=== PATIENT | female | born 1955 | race Caucasian/White ===

== ENCOUNTER 2021-04-03 13:41 | Inpatient (IN) ==
[2021-04-03] MEDS ORDERED: SODIUM CHLORIDE 0.9% 1000ML 1,000 ML IV ONE (14:38)
[2021-04-03] MEDS ORDERED: dilTIAZem HCl 5 MG/ML 5 ML VIAL IV STA ×2 (14:38→15:50)
--- NOTE | 2021-04-03 15:00 | XRay Report ---
XR chest 1V portable CLINICAL HISTORY: Chest Pain. COMPARISON STUDY: 05/18/2012 TECHNIQUE: 1 view of the chest FINDINGS: Single frontal view of the chest demonstrates the cardiomediastinal silhouette to be within normal li mits. The lungs are clear of alveolar opacities. There is no evidence for pleural effusion. There is no evidence for vascular congestion. There is no acute osseous pathology. IMPRESSION: No acute cardiopulmonary disease. ACT 112: Negative or not required by law. Electronically signed by: Florin Nguyen M.D. 04/03/2021 2:59 PM
--- NOTE | 2021-04-03 15:09 | Emergency Department Note ---
Impression & Plan Atrial fibrillation with rapid ventricular response, Palpitations, Exertional shortness of breath ED Provider Note NAME: LARA YOUNG AGE: 65 SEX: F : 1955 ARRIVES VIA: Walk-In INFORMANT: Patient, ED PROVIDER(S): Danyel Peña DO CHIEF COMPLAINT: Palpitations HPI: The patient is a 65-year-old female who presented to the emergency department from her family doctor's office for an evaluation of palpitations. The patient states that she recently got over COVID-19. She was positive a few weeks ago she continued her with a formal quarantine process and was feeling much better. Over the last few days she has been noticing that she has been more short of breath especially with any exertion. She denies having any chest pain. She has had no lower extremity swelling. The patient states that she went to her family doctor's office to be evaluated. She had an EKG done at the office and was sent to the emergency department immediately for further evaluation. The patient states that she is compliant with her outpatient medications. She states that she has no history of dysrhythmia or atrial fibrillation. The patient states that she has had no syncope. The patient was not seen by dyer assistant. ROS: See above HPI for pertinent positives & negatives. A total of 10 systems reviewed and were otherwise negative. PAST MEDICAL HISTORY: See Below PAST SURGICAL HISTORY: See Below FAMILY HISTORY: See Below SOCIAL HISTORY: See Below HOME MEDICATIONS: See Below ALLERGIES: See Below VITALS: See Below PHYSICAL EXAMINATION: GENERAL: Patient is awake alert in no acute distress patient is resting comfortably and showing no signs of anxiety EYES: The conjunctivae are clear. The pupils are round and reactive. EARS, NOSE, MOUTH AND THROAT: The nose is without any evidence of any deformity. NECK: The neck is nontender and supple. RESPIRATORY: Normal respiratory effort is noted there is no evidence of wheezing rhonchi or rales CARDIOVASCULAR: Tachycardic and irregular heart sounds were noted to auscultation. There is no definite murmur. GASTROINTESTINAL: The abdomen is soft. Abdomen is nontender. MUSCULOSKELETAL/EXTREMITIES: There is no evidence of gross deformity full range of motion is noted in the hips and shoulders. SKIN: There is no obvious evidence of any rash. There are no petechiae, pallor or cyanosis noted. NEUROLOGIC: Patient is awake alert and oriented x3. MEDICAL DECISION MAKING: The patient is a 65-year-old female who presented to emergency department for an abnormal EKG. The patient was found to have new onset atrial fibrillation with RVR. Patient was treated with IV fluids as well as IV Cardizem in the emergency department. She was reevaluated multiple times. Her pulse rate started to improve but then rebounded became higher. I discussed the patient's condition with her. I also discussed her case with the on-call [facility]. They have agreed to evaluate the patient in the emergency department for further management and disposition. A Cardizem drip was ordered by the admitt ing team. I will defer anticoagulation to the admitting team. Triage Nursing notes reviewed. Prior medical records reviewed Vital Signs: reviewed and remarkable for tachycardia. Differential diagnosis: Premature contractions, electrolyte abnormality, cardiac dysrhythmia, thyroid dysfunction, pulmonary embolism, infection, gastrointestinal, as well as other pathologies. ER treatment provided: See below Diagnostics interpreted by me: ECG: EKG was obtained in the emergency department. My interpretation is atrial fibrillation at 152 bpm. There is no PVCs appreciated. Nonspecific ST segment abnormalities were noted. This was compared to a tracing from May 222012. Sinus rhythm has been replaced by rapid atrial fibrillation. Cardiac Monitoring: An order was placed for continuous cardiac monitoring. The monitor shows a rate of 139 bpm with sinus rhythm. Laboratory studies: As stated above and show below. Imaging studies: See below Consultation(s): I discussed this case with the on-call [facility]. They have agreed to evaluate the patient in the emergency department. ED COURSE: Procedures: none Critical Care: I have personally spent greater than 40 minutes of critical care time in the direct management of this patient. This includes bedside care, interpretation of diagnostic studies, and testing, discussion with consultants, patient, and family members, and other required patient management activities. This 40 minutes is in excess of all separately billable procedures. Past Med/Surg History Medical History Calculus of ureter (05/21/12) Discectomy for intervertebral herniated disc, nucleus pulposus (05/21/12) History of COVID-19 HLD (hyperlipidemia) Hypertension Hypothyroid VANESA on CPAP Restless legs (05/21/12) Subarachnoid hemorrhage determined to be benign, spontaneous, 2012, seen by Dr. Montez, f/u MRI showed resolution of bleed T2DM (type 2 diabetes mellitus) Surgical History History of colonoscopy History of laminectomy History of tubal ligation Family History Father , 52 Myocardial infarction Brother Coronary heart disease Sister , 53 Myocardial infarction Mother Cancer Social History Smoking Status: Never smoker Second Hand Exposure: No; Do You Dip or Chew Tobacco: No; Hx Alcohol Use: No Hx Substance Use: No Preferred Language: Bhutanese Communication Ability: Effective Provisioning Specialist Required: No Beliefs That Will Affect Care: None marital status: Current Living Situation: Family Current Living Situation Comment: , daughter and 3 granddaughters Other Information That Helps Us Care for You: No Feels Safe at Home: Yes Safety Concerns: Feels Safe At This Time Assistive Devices: Glasses Allergies Allergies Allergy/AdvReac Type Severity Reaction Status Date / Time hydrocodone Allergy Intermediate RASH Verified 04/03/21 16:59 Sulfa (Sulfonamide Allergy Mild GI SYMPTOMS Verified 04/03/21 16:59 Antibiotics) Home Meds Home Medications Medication Instructions Recorded Confirmed amlodipine 5 mg tablet 5 mg PO DAILY 04/03/21 04/03/21 ascorbic acid (vitamin C) 500 mg 0 mg PO DAILY 04/03/21 04/03/21 tablet (Vitamin C) aspirin 81 mg tablet,delayed 81 mg PO DAILY 04/03/21 04/03/21 release atorvastatin 40 mg tablet 40 mg PO HS 04/03/21 04/03/21 cholecalciferol (vitamin D3) 25 0 mcg PO DAILY 04/03/21 04/03/21 mcg (1,000 unit) capsule (Vitamin D3) glucosamine sulf dipot 1 cap PO BID 04/03/21 04/03/21 chlr,msm,chond 550 mg-C 30 mg-jose 1 mg capsule (Glucosamine Chondroitin) levothyroxine 100 mcg tablet 100 mcg PO DAILYBB 04/03/21 04/03/21 levothyroxine 25 mcg tablet 25 mcg PO DAILYBB 04/03/21 04/03/21 metformin 500 mg tablet,extended 500 mg PO BIDM 04/03/21 04/03/21 release 24 hr multivitamin 1 tab PO DAILY 04/03/21 04/03/21 omega-3 fatty acids 1,000 mg 1,000 mg PO DAILY 04/03/21 04/03/21 capsule omeprazole 20 mg capsule,delayed 20 mg PO DAILY 04/03/21 04/03/21 release turmeric 400 mg capsule 400 mg PO DAILY 04/03/21 04/03/21 vitamin E 400 unit capsule 0 unit PO DAILY 04/03/21 04/03/21 zinc 50 mg tablet 50 mg PO DAILY 04/03/21 04/03/21 Results & Data (ED) Vital Signs Vital Signs - 24 hr 04/03/21 14:01 04/03/21 14:06 04/03/21 14:36 Temperature 36.8 C Temperature Source Temporal Artery Scan Pulse Rate 132 H 151 H Pulse Rate [Apical] Pulse Rate from SpO2 Sensor Pulse Rhythm Pulse Rhythm [Apical] Respiratory Rate 18 16 Respiratory Effort / Characteristics Respiratory Depth Respiratory Pattern Blood Pressure 130/65 Blood Pressure [Right Arm] Blood Pressure Mean 86 Blood Pressure Mean [Right Arm] Blood Pressure Position [Right Arm] Pulse Oximetry 97 Oxygen Delivery Method Room Air Room Air Sepsis Recent Fever Within 48 Hours No Sepsis New/Unexplained Change in Mental Status No Sepsis Action Taken by Nursing No Action Required 04/03/21 14:56 04/03/21 14:57 04/03/21 14:59 Temperature Temperature Source Pulse Rate 157 H 153 H Pulse Rate [Apical] 144 H Pulse Rate from SpO2 Sensor 133 H 131 H Pulse Rhythm Irregular Pulse Rhythm [Apical] Irregular Respiratory Rate 22 22 19 Respiratory Effort / Characteristics Non-Labored Spontaneous Respiratory Depth Normal Respiratory Pattern Regular Blood Pressure 138/119 H 152/102 H Blood Pressure [Right Arm] 152/102 H Blood Pressure Mean 125 118 Blood Pressure Mean [Right Arm] 118 Blood Pressure Position [Right Arm] Semi-fowlers Pulse Oximetry 99 97 98 Oxygen Delivery Method Room Air Room Air Sepsis Recent Fever Within 48 Hours Sepsis New/Unexplained Change in Mental Status Sepsis Action Taken by Nursing 04/03/21 15:00 04/03/21 15:30 04/03/21 15:40 Temperature Temperature Source Pulse Rate 161 H 142 H 115 H Pulse Rate [Apical] Pulse Rate from SpO2 Sensor 146 H 135 H 111 H Pulse Rhythm Pulse Rhythm [Apical] Respiratory Rate 21 25 H 16 Respiratory Effort / Characteristics Respiratory Depth Respiratory Pattern Blood Pressure 129/104 H 134/82 Blood Pressure [Right Arm] Blood Pressure Mean 112 99 Blood Pressure Mean [Right Arm] Blood Pressure Position [Right Arm] Pulse Oximetry 97 97 98 Oxygen Delivery Method Sepsis Recent Fever Within 48 Hours Sepsis New/Unexplained Change in Mental Status Sepsis Action Taken by Nursing 04/03/21 15:44 04/03/21 15:50 04/03/21 16:00 Temperature Temperature Source Pulse Rate 129 H 97 H Pulse Rate [Apical] 110 H Pulse Rate from SpO2 Sensor 119 H 104 H Pulse Rhythm Pulse Rhythm [Apical] Respiratory Rate 21 21 Respiratory Effort / Characteristics Respiratory Depth Respiratory Pattern Blood Pressure Blood Pressure [Right Arm] Blood Pressure Mean Blood Pressure Mean [Right Arm] Blood Pressure Position [Right Arm] Pulse Oximetry 88 L 97 Oxygen Delivery Method Sepsis Recent Fever Within 48 Hours Sepsis New/Unexplained Change in Mental Status Sepsis Action Taken by Nursing 04/03/21 16:01 04/03/21 16:10 04/03/21 16:20 Temperature Temperature Source Pulse Rate 97 H 98 H 123 H Pulse Rate [Apical] Pulse Rate from SpO2 Sensor 86 98 H 111 H Pulse Rhythm Pulse Rhythm [Apical] Respiratory Rate 23 18 22 Respiratory Effort / Characteristics Respiratory Depth Respiratory Pattern Blood Pressure 114/84 Blood Pressure [Right Arm] Blood Pressure Mean 94 Blood Pressure Mean [Right Arm] Blood Pressure Position [Right Arm] Pulse Oximetry 91 97 98 Oxygen Delivery Method Sepsis Recent Fever Within 48 Hours Sepsis New/Unexplained Change in Mental Status Sepsis Action Taken by Nursing 04/03/21 16:30 04/03/21 16:40 Temperature Temperature Source Pulse Rate 85 127 H Pulse Rate [Apical] Pulse Rate from SpO2 Sensor 88 118 H Pulse Rhythm Pulse Rhythm [Apical] Respiratory Rate 27 H 22 Respiratory Effort / Characteristics Respiratory Depth Respiratory Pattern Blood Pressure 102/76 Blood Pressure [Right Arm] Blood Pressure Mean 84 Blood Pressure Mean [Right Arm] Blood Pressure Position [Right Arm] Pulse Oximetry 97 97 Oxygen Delivery Method Sepsis Recent Fever Within 48 Hours Sepsis New/Unexplained Change in Mental Status Sepsis Action Taken by [facility] Medications Current Medication List: was personally reviewed by me Laboratory Data Attestation: I reviewed the patient's lab results. Result diagrams: 04/04/21 05:28 04/04/21 05:28 Lab Results 04/03/21 04/03/21 04/03/21 Range/Units 14:55 14:55 14:55 WBC 9.17 (4.8-10.8) K/uL RBC 4.11 L (4.2-5.4) M/uL Hgb 11.6 L (12.0-16.0) g/dL Hct 36.1 L (37-47) % MCV 87.8 (80-100) fL MCH 28.2 (25-34) pg MCHC 32.1 (32-36) g/dL RDW Std Deviation 48.3 H (36.4-46.3) fL RDW Coeff of Alexsandra 15.2 H (11.5-14.5) % Plt Count 273 (130-400) K/uL MPV 11.2 H (7.4-10.4) fL Immature Gran % (Auto) 0.3 % Neut % (Auto) 58.5 % Lymph % (Auto) 31.4 % Mccracken % (Auto) 9.1 % Eos % (Auto) 0.5 % Baso % (Auto) 0.2 % Neut # (Auto) 5.36 (1.4-6.5) K/uL Lymph # (Auto) 2.88 (1.2-3.4) K/uL Mccracken # (Auto) 0.83 H (0.11-0.59) K/uL Eos # (Auto) 0.05 (0-0.5) K/uL Baso # (Auto) 0.02 (0-0.2) K/uL Immature Gran # (Auto) 0.03 H (0.00-0.02) K/uL PT 10.3 (9.0-12.0) Seconds INR 1.0 (0.9-1.1) APTT 23.9 (21.0-31.0) Seconds PTT Ratio 0.9 Sodium 137 (136-145) mmol/L Potassium 3.6 (3.5-5.1) mmol/L Chloride 105 (98-107) mmol/L Carbon Dioxide 22 (21-32) mmol/L Anion Gap 10 (3-11) BUN 14 (6-23) mg/dl Creatinine 0.62 (0.6-1.2) mg/dl Est Cr Clr Drug Dosing 103.9 ml/min Est GFR ( Amer) 111.2 ml/min Est GFR (Non-Af Amer) 96.0 ml/min BUN/Creatinine Ratio 22.6 H (10-20) Glucose 111 H (70-99(Fasting)) mg/dl Calcium 9.4 (8.5-10.1) mg/dl Magnesium (1.7-2.4) mg/dl Total Bilirubin 0.6 (0.2-1.0) mg/dl AST 24 (13-39) U/L ALT 42 (7-52) U/L Alkaline Phosphatase 74 (34-104) U/L Troponin I < 0.03 (0-0.04) ng/ml Total Protein 7.5 (6.0-8.3) gm/dl Albumin 4.1 (3.4-5.0) gm/dl Globulin 3.4 (2.5-4.0) gm/dl Albumin/Globulin Ratio 1.2 (0.9-2) Procalcitonin (0-0.5) ng/ml TSH (0.300-4.500) uIu/ml Free T4 (0.61-1.60) ng/dl SARS-CoV-2, RNA, NAAT (NEGATIVE) 04/03/21 04/03/21 04/03/21 Range/Units 14:55 14:55 14:55 WBC (4.8-10.8) K/uL RBC (4.2-5.4) M/uL Hgb (12.0-16.0) g/dL Hct (37-47) % MCV (80-100) fL MCH (25-34) pg MCHC (32-36) g/dL RDW Std Deviation (36.4-46.3) fL RDW Coeff of Alexsandra (11.5-14.5) % Plt Count (130-400) K/uL MPV (7.4-10.4) fL Immature Gran % (Auto) % Neut % (Auto) % Lymph % (Auto) % Mccracken % (Auto) % Eos % (Auto) % Baso % (Auto) % Neut # (Auto) (1.4-6.5) K/uL Lymph # (Auto) (1.2-3.4) K/uL Mccracken # (Auto) (0.11-0.59) K/uL Eos # (Auto) (0-0.5) K/uL Baso # (Auto) (0-0.2) K/uL Immature Gran # (Auto) (0.00-0.02) K/uL PT (9.0-12.0) Seconds INR (0.9-1.1) APTT (21.0-31.0) Seconds PTT Ratio Sodium (136-145) mmol/L Potassium (3.5-5.1) mmol/L Chloride (98-107) mmol/L Carbon Dioxide (21-32) mmol/L Anion Gap (3-11) BUN (6-23) mg/dl Creatinine (0.6-1.2) mg/dl Est Cr Clr Drug Dosing ml/min Est GFR ( Amer) ml/min Est GFR (Non-Af Amer) ml/min BUN/Creatinine Ratio (10-20) Glucose (70-99(Fasting)) mg/dl Calcium (8.5-10.1) mg/dl Magnesium 1.7 (1.7-2.4) mg/dl Total Bilirubin (0.2-1.0) mg/dl AST (13-39) U/L ALT (7-52) U/L Alkaline Phosphatase (34-104) U/L Troponin I (0-0.04) ng/ml Total Protein (6.0-8.3) gm/dl Albumin (3.4-5.0) gm/dl Globulin (2.5-4.0) gm/dl Albumin/Globulin Ratio (0.9-2) Procalcitonin < 0.05 (0-0.5) ng/ml TSH 0.183 L (0.300-4.500) uIu/ml Free T4 1.43 (0.61-1.60) ng/dl SARS-CoV-2, RNA, NAAT (NEGATIVE) 04/03/21 Range/Units 15:31 WBC (4.8-10.8) K/uL RBC (4.2-5.4) M/uL Hgb (12.0-16.0) g/dL Hct (37-47) % MCV (80-100) fL MCH (25-34) pg MCHC (32-36) g/dL RDW Std Deviation (36.4-46.3) fL RDW Coeff of Alexsandra (11.5-14.5) % Plt Count (130-400) K/uL MPV (7.4-10.4) fL Immature Gran % (Auto) % Neut % (Auto) % Lymph % (Auto) % Mccracken % (Auto) % Eos % (Auto) % Baso % (Auto) % Neut # (Auto) (1.4-6.5) K/uL Lymph # (Auto) (1.2-3.4) K/uL Mccracken # (Auto) (0.11-0.59) K/uL Eos # (Auto) (0-0.5) K/uL Baso # (Auto) (0-0.2) K/uL Immature Gran # (Auto) (0.00-0.02) K/uL PT (9.0-12.0) Seconds INR (0.9-1.1) APTT (21.0-31.0) Seconds PTT Ratio Sodium (136-145) mmol/L Potassium (3.5-5.1) mmol/L Chloride (98-107) mmol/L Carbon Dioxide (21-32) mmol/L Anion Gap (3-11) BUN (6-23) mg/dl Creatinine (0.6-1.2) mg/dl Est Cr Clr Drug Dosing ml/min Est GFR ( Amer) ml/min Est GFR (Non-Af Amer) ml/min BUN/Creatinine Ratio (10-20) Glucose (70-99(Fasting)) mg/dl Calcium (8.5-10.1) mg/dl Magnesium (1.7-2.4) mg/dl Total Bilirubin (0.2-1.0) mg/dl AST (13-39) U/L ALT (7-52) U/L Alkaline Phosphatase (34-104) U/L Troponin I (0-0.04) ng/ml Total Protein (6.0-8.3) gm/dl Albumin (3.4-5.0) gm/dl Globulin (2.5-4.0) gm/dl Albumin/Globulin Ratio (0.9-2) Procalcitonin (0-0.5) ng/ml TSH (0.300-4.500) uIu/ml Free T4 (0.61-1.60) ng/dl SARS-CoV-2, RNA, NAAT NEGATIVE (NEGATIVE) Administered Medications Amlodipine Besylate (Amlodipine Besylate 5 Mg Tab) 5 mg PO DAILY [facility] Stop: 05/04/21 08:59 Last Admin: 04/04/21 08:30 Dose: 5 mg Documented by: [id number] Atorvastatin Calcium (Atorvastatin 40 Mg Tab) 40 mg PO HS [facility] Stop: 05/03/21 20:59 Last Admin: 04/03/21 20:27 Dose: 40 mg Documented by: [id number] Diltiazem HCl 125 mg/ Dextrose 125 mls @ 5 mls/hr IV .Q24H [facility]; Protocol Stop: 05/03/21 17:44 Last Admin: 04/03/21 19:30 Dose: 5 mg/hr, 5 mls/hr Documented by: [id number] Cosigned by: [id number] Heparin Sodium/Dextrose (Heparin Sodium/Dextrose) 25,000 units in 500 mls @ 17 mls/hr IV .Q24H [facility]; Protocol Stop: 05/04/21 09:14 Last Admin: 04/04/21 10:59 Dose: 850 units/hr, 17 mls/hr Documented by: [id number] Cosigned by: [id number] Insulin Aspart (Insulin Aspart Per Unit) 0 units SC ACHS [facility] Stop: 05/03/21 20:59 Last Admin: 04/04/21 07:39 Dose: Not Given Documented by: [id number] Cosigned by: [id number] Admin: 04/03/21 20:34 Dose: 1 units Documented by: [id number] Cosigned by: [id number] Levothyroxine Sodium (Levothyroxine Sodium 112 Mcg Tablet) 112 mcg PO DAILYBB [facility] Stop: 05/04/21 06:29 Last Admin: 04/04/21 05:47 Dose: 112 mcg Documented by: [id number] Magnesium Oxide (Magnesium Oxide 400 Mg Tab) 400 mg PO BID [facility] Stop: 05/04/21 08:59 Last Admin: 04/04/21 09:55 Dose: 400 mg Documented by: [id number] Pantoprazole Sodium (Pantoprazole 40 Mg Tab) 40 mg PO DAILY [facility] Stop: 05/04/21 08:59 Last Admin: 04/04/21 08:31 Dose: 40 mg Documented by: [id number] Discontinued Medications Apixaban (Apixaban 5 Mg Tablet) 5 mg PO BID [facility] Stop: 05/03/21 22:44 Last Admin: 04/03/21 22:49 Dose: 5 mg Documented by: [id number] Diltiazem HCl (Diltiazem Hcl 5 Mg/Ml 5 Ml Vial) 20 mg IV NOW STA Stop: 04/03/21 14:39 Last Admin: 04/03/21 15:34 Dose: 20 mg Documented by: [id number] Cosigned by: [id number] Diltiazem HCl (Diltiazem Hcl 5 Mg/Ml 5 Ml Vial) 10 mg IV NOW STA Stop: 04/03/21 15:51 Last Admin: 04/03/21 15:54 Dose: 10 mg Documented by: [id number] Cosigned by: [id number] Sodium Chloride (Nss 1000ml) 1,000 mls @ 999 mls/hr IV .Q1H1M ONE Stop: 04/03/21 15:38 Last Infusion: 04/03/21 16:35 Dose: 0 mls/hr Documented by: [id number] Admin: 04/03/21 15:33 Dose: 999 mls/hr Documented by: [id number] Magnesium Sulfate/Dextrose (Magnesium Sulfate / D5w) 1 gm in 100 mls @ 100 mls/hr IV NOW STA Stop: 04/03/21 17:46 Last Infusion: 04/03/21 18:42 Dose: 0 mls/hr Documented by: [id number] Admin: 04/03/21 17:36 Dose: 100 mls/hr Documented by: [id number] Ioversol (Optiray 320 125ml) 120 ml IV ONCE ONE Stop: 04/03/21 21:36 Last Admin: 04/03/21 21:36 Dose: 120 ml Documented by: [id number] Ioversol (Optiray 320 100ml) 95 ml IV ONCE ONE Stop: 04/04/21 10:41 Last Admin: 04/04/21 10:35 Dose: 95 ml Documented by: [id number] Metoprolol Tartrate (Metoprolol Tartrate 25 Mg Tab) 25 mg PO QID [facility] Stop: 05/03/21 20:59 Last Admin: 04/04/21 08:31 Dose: 25 mg Documented by: [id number] Admin: 04/03/21 20:40 Dose: 25 mg Documented by: [id number] Potassium Chloride (Potassium Chloride Crtab 20 Meq Tabcr) 40 meq PO NOW STA Stop: 04/03/21 16:49 Last Admin: 04/03/21 17:36 Dose: 40 meq Documented by: [id number] Imaging Data Radiologist's Impression: Chest X-Ray 04/03/21 14:06 XR chest 1V portable CLINICAL HISTORY: Chest Pain. COMPARISON STUDY: 05/18/2012 TECHNIQUE: 1 view of the chest FINDINGS: Single frontal view of the chest demonstrates the cardiomediastinal silhouette to be within normal limits. The lungs are clear of alveolar opacities. There is no evidence for pleural effusion. There is no evidence for vascular congestion. There is no acute osseous pathology. IMPRESSION: No acute cardiopulmonary disease. ACT 112: Negative or not required by law. Electronically signed by: Florin Nguyen M.D. 04/03/2021 2:59 PM Discharge Plan Visit Data Chief Complaint: Arrhythmia/Palpitations Stated Complaint: RAPID HEART RATE-DOC REF ED Provider: Danyel Peña Discharge Problem: Atrial fibrillation with rapid ventricular response, Palpitations, Exertional shortness of breath Patient Disposition: Admitted As Inpatient Discharge Instructions Interventions: ED Discharge Assessment Last Done: 04/03/21 17:51
[2021-04-03 15:17] LABS: Basophils # (auto) 0.02 K/uL (0-0.2); Basophils % (auto) 0.2 %; Eosinophils # (auto) 0.05 K/uL (0-0.5); Eosinophils % (auto) 0.5 %; Hematocrit (blood only) 36.1 % (37-47); Hemoglobin 11.6 g/dL (12.0-16.0); Immature Granulocytes # (auto) 0.03 K/uL (0.00-0.02); Immature Granulocytes % (auto) 0.3 %; Lymphocytes # (auto) 2.88 K/uL (1.2-3.4); Lymphocytes % (auto) 31.4 %; Mean Corpuscular Hemoglobin 28.2 pg (25-34); Mean Corpuscular Hgb Conc 32.1 g/dL (32-36); Mean Corpuscular Volume 87.8 fL (80-100); Mean Platelet Volume 11.2 fL (7.4-10.4); Monocytes # (auto) 0.83 K/uL (0.11-0.59); Monocytes % (auto) 9.1 %; Neutrophils # (auto) 5.36 K/uL (1.4-6.5); Neutrophils % (auto) 58.5 %; Platelet Count 273 K/uL (130-400); RDW Coefficient of Variation 15.2 % (11.5-14.5); RDW Standard Deviation 48.3 fL (36.4-46.3); Red Blood Count 4.11 M/uL (4.2-5.4); White Blood Count 9.17 K/uL (4.8-10.8)
[2021-04-03 15:54] LABS: Partial Thromboplastin Ratio 0.9; Partial Thromboplastin Time 23.9 Seconds (21.0-31.0); Prothrombin Time 10.3 Seconds (9.0-12.0)
[2021-04-03 16:00] LABS: Troponin I < 0.03 ng/ml (0-0.04)
[2021-04-03 16:12] LABS: Thyroid Stimulating Hormone 0.183 uIu/ml (0.300-4.500)
[2021-04-03 16:29] LABS: Alanine Aminotransferase 42 U/L (7-52); Albumin Globulin Ratio 1.2 (0.9-2); Albumin Level 4.1 gm/dl (3.4-5.0); Alkaline Phosphatase 74 U/L (34-104); Anion Gap 10 (3-11); Aspartate Aminotransferase 24 U/L (13-39); BUN Creatinine Ratio 22.6 (10-20); Bilirubin,Total 0.6 mg/dl (0.2-1.0); Blood Urea Nitrogen 14 mg/dl (6-23); Calcium 9.4 mg/dl (8.5-10.1); Carbon Dioxide 22 mmol/L (21-32); Chloride 105 mmol/L (98-107); Creatinine Clr Calc Pharmacy 103.9 ml/min; Est GFR (African American) 111.2 ml/min; Globulin 3.4 gm/dl (2.5-4.0); Glucose 111 mg/dl (70-99(Fasting)); Potassium 3.6 mmol/L (3.5-5.1); Sodium 137 mmol/L (136-145); Total Protein 7.5 gm/dl (6.0-8.3)
[2021-04-03] MEDS ORDERED: MAGNESIUM SULFATE / D5W 1 GM/100 ML BAG IV STA (16:47)
[2021-04-03] MEDS ORDERED: POTASSIUM CHLORIDE CRTAB 20 MEQ TABCR PO STA (16:48)
[2021-04-03 17:20] LABS: T4 Free Thyroxine 1.43 ng/dl (0.61-1.60)
--- NOTE | 2021-04-03 17:38 | History & Physical Report ---
Date of Service April 03, 2021 Assessment & Plan (1) Atrial fibrillation with rapid ventricular response: Plan: This is a 65-year-old female who has significant past medical history of HTN, HLD, T2DM, VANESA on CPAP, history of a subarachnoid hemorrhage in 2012 spont aneous, hypothyroidism, RLS, obesity who presents to ED at the referral of PCP due to being found in atrial fibrillation in clinic. Atrial fibrillation RVR Recent history of COVID-19, diagnosed 03/08/2021 Admit to PCU Obtain CTA chest rule out PE given recent history of Covid Echocardiogram Start diltiazem drip for rate control [id number] 3 (F, HTN, DM) Discussed with cardiology Dr. Joseph - if CTA negative for PE will start pt on eliquis 5mg twice daily, first dose now, next dose 9 am on 04/04 of significance pt with hx of spont SAH in 2012 with resolution on imaging supplement K and Mag to keep > 4 and 2 respectively T2DM last a1c 6.6 hold metformin a1c in a.m. monitor FBS place on novolog SS HTN Continue Norvasc HLD Continue statin VANESA CPAP at HS Hypothyroidism Levothyroxine recently increased from 100 mcg 125 mcg on 02/28/2021 secondary to TSH 5.81, normal free T4 Reduce levothyroxine to 112 mcg Repeat in 4 weeks DVT ppx: pending CTA Dispo: PCU FULL CODE PCP: George Pt was seen and examined in collaboration with DR. Gan, please see addendum History of Present Illness Chief Complaint: Referred by PCP due to afib in clinic. Primary Care Provider: Paul Vazquez MD This is a 65-year-old female who has significant past medical history of HTN, HLD, T2DM, VANESA on CPAP, history of a subarachnoid hemorrhage in 2012 spontaneous, hypothyroidism, RLS, obesity who presents to ED at the referral of PCP due to being found in atrial fibrillation in clinic. Of significance patient was diagnosed with COVID-19 on 03/08 and symptoms started on 03/04. Her symptoms consisted of cough, shortness of breath, malaise and fatigue. She completed her 10-day quarantine and resume work on 03/22. Despite being in a quarantine she continued to have a significant cough and shortness of breath with exertion. Because of this she was seen in clinic today for further evaluation. EKG revealed patient to be in atrial fibrillation and she was referred to ED for further treatment. Patient states when looking back after being diagnosed with Covid she does recall some palpitations, but denies any palpitations of late. She further denies any fever, chills, sweats, lightheadedness, dizziness, headache, chest pain, hemoptysis, nausea, vomiting, abdominal pain, change in bowel or urinary habits. She continues to have a cough that is productive of light yellow sputum in the morning and clear sputum in the afternoon. She has been taking [id number] [place] products for symptom relief. She denies any prior history of heart disease or arrhythmias. She does have a significant family history of CAD with father passing of an MS at 52 and sister passing an MS at 53. She also has a significant history for spontaneous subarachnoid hemorrhage in 2012. This was felt to be small and left parietal region. She had follow-up imaging in June 2012 which showed resolution of hemorrhage. She did have a follow-up with neurology and it was felt to be benign. Currently she takes a baby aspirin daily for preventative measures. In ED patient's heart rate was in the 140s and 150s. She did receive 30 mg of IV diltiazem with mild relief. Her blood pressure remained stable. Lab work significant for H&H 11.6 and 36.1, glucose 111, TSH 0.183. Chest x-ray was negative for acute abnormality. Initial troponin WNL. Patient does state her levothyroxine was recently increased 1 week ago from 100-125. Allergies Allergy/AdvReac Type Severity Reaction Status Date / Time hydrocodone Allergy Intermediate RASH Verified 04/03/21 16:59 Sulfa (Sulfonamide Allergy Mild GI SYMPTOMS Verified 04/03/21 16:59 Antibiotics) Home Medications Medication Instructions Recorded Confirmed Type amlodipine 5 mg tablet 5 mg PO DAILY 04/03/21 04/03/21 History ascorbic acid (vitamin C) 500 mg 0 mg PO DAILY 04/03/21 04/03/21 History tablet (Vitamin C) aspirin 81 mg tablet,delayed 81 mg PO DAILY 04/03/21 04/03/21 History release atorvastatin 40 mg tablet 40 mg PO HS 04/03/21 04/03/21 History cholecalciferol (vitamin D3) 25 0 mcg PO DAILY 04/03/21 04/03/21 History mcg (1,000 unit) capsule (Vitamin D3) glucosamine sulf dipot 1 cap PO BID 04/03/21 04/03/21 History chlr,msm,chond 550 mg-C 30 mg-jose 1 mg capsule (Glucosamine Chondroitin) levothyroxine 100 mcg tablet 100 mcg PO DAILYBB 04/03/21 04/03/21 History levothyroxine 25 mcg tablet 25 mcg PO DAILYBB 04/03/21 04/03/21 History metformin 500 mg tablet,extended 500 mg PO BIDM 04/03/21 04/03/21 History release 24 hr multivitamin 1 tab PO DAILY 04/03/21 04/03/21 History omega-3 fatty acids 1,000 mg 1,000 mg PO DAILY 04/03/21 04/03/21 History capsule omeprazole 20 mg capsule,delayed 20 mg PO DAILY 04/03/21 04/03/21 History release turmeric 400 mg capsule 400 mg PO DAILY 04/03/21 04/03/21 History vitamin E 400 unit capsule 0 unit PO DAILY 04/03/21 04/03/21 History zinc 50 mg tablet 50 mg PO DAILY 04/03/21 04/03/21 History Past Med/Surg History Medical History (Updated 04/03/21 @ 17:32 by Aamnda Nunes PA-C) Calculus of ureter (05/21/12) Discectomy for intervertebral herniated disc, nucleus pulposus (05/21/12) History of COVID-19 HLD (hyperlipidemia) Hypertension Hypothyroid VANESA on CPAP Restless legs (05/21/12) Subarachnoid hemorrhage determined to be benign, spontaneous, 2012, seen by Dr. Montez, f/u MRI showed resolution of bleed T2DM (type 2 diabetes mellitus) Surgical History History of colonoscopy History of laminectomy History of tubal ligation Family History Father , 52 Myocardial infarction Brother Coronary heart disease Sister , 53 Myocardial infarction Mother Cancer Social History Smoking Status: Never smoker Hx Alcohol Use: No Hx Substance Use: No Preferred Language: Greenlandic marital status: Current Living Situation: Spouse Feels Safe at Home: Yes Review of Systems Review of Systems: All systems reviewed & are unremarkable except as noted in HPI & below Physical Exam Physical Exam: Constitutional: WD/WN, vitals as above, NAD, sitting up in bed, pleasant, conversing easily Head: Normocephalic, Atraumatic Eyes: PERRL, conjunctivae normal, anicteric sclerae ENMT: external ear and nose normal, oropharynx normal Neck: trachea midline, no thyromegaly normal visual inspection Respiratory: normal respiratory effort, lungs clear to auscultation, no wheeze, rales, rhonchi. Normal insp/exp effort, no accessory muscle use Cardiovascular: Irregular rate, irregular rhythm, no murmur, trace to +1 pretibial edema, no erythema, negative homans Vessels: no JVD or carotid bruit Chest: normal inspection of chest Abdomen: normal bowel sounds, soft, nontender, no hepatosplenomegaly Musculoskeletal: no cyanosis or clubbing, active range of motion x4 Skin: no rashes, warm and dry normal turgor Neurologic: PERRL, EOMI, accommodation nl, no face palsy, no dysarthria CN's II-XI intact bilaterally and moves all extremities Psychiatric: A+Ox3, euthymic affect : deferred Results & Data Results & Data ([facility]) Vital Signs (Past 12 Hours) Vital Signs Temp Pulse Pulse Resp BP BP Pulse Ox 04/03/21 16:30 85 27 H 102/76 97 04/03/21 16:20 123 H 22 98 04/03/21 16:10 98 H 18 97 04/03/21 16:01 97 H 23 114/84 91 04/03/21 16:00 97 H 21 97 04/03/21 15:50 129 H 21 88 L 04/03/21 15:44 110 H 04/03/21 15:40 115 H 16 98 04/03/21 15:30 142 H 25 H 134/82 97 04/03/21 15:00 161 H 21 129/104 H 97 04/03/21 14:59 153 H 19 152/102 H 98 04/03/21 14:57 144 H 22 152/102 H 97 04/03/21 14:56 157 H 22 138/119 H 99 04/03/21 14:36 151 H 16 04/03/21 14:01 36.8 C 132 H 18 130/65 97 Diagnostic Findings Chest X-Ray 04/03/21 14:06 XR chest 1V portable CLINICAL HISTORY: Chest Pain. COMPARISON STUDY: 05/18/2012 TECHNIQUE: 1 view of the chest FINDINGS: Single frontal view of the chest demonstrates the cardiomediastinal silhouette to be within normal limits. The lungs are clear of alveolar opacities. There is no evidence for pleural effusion. There is no evidence for vascular congestion. There is no acute osseous pathology. IMPRESSION: No acute cardiopulmonary disease. ACT 112: Negative or not required by law. Electronically signed by: Florin Nguyen M.D. 04/03/2021 2:59 PM Medications Administered Medication List Discontinued Medications Diltiazem HCl (Diltiazem Hcl 5 Mg/Ml 5 Ml Vial) 20 mg IV NOW STA Stop: 04/03/21 14:39 Last Admin: 04/03/21 15:34 Dose: 20 mg Documented by: [id number] Cosigned by: [id number] Diltiazem HCl (Diltiazem Hcl 5 Mg/Ml 5 Ml Vial) 10 mg IV NOW STA Stop: 04/03/21 15:51 Last Admin: 04/03/21 15:54 Dose: 10 mg Documented by: [id number] Cosigned by: [id number] Sodium Chloride (Nss 1000ml) 1,000 mls @ 999 mls/hr IV .Q1H1M ONE Stop: 04/03/21 15:38 Last Admin: 04/03/21 15:33 Dose: 999 mls/hr Documented by: [id number] ECG Rate (beats per minute): 152 Rhythm: atrial fibrillation COVID-19 Results Results COVID-19 Adm Lab Results: RBC 4.11 M/uL (4.2-5.4) L 04/03/21 WBC 9.17 K/uL (4.8-10.8) 04/03/21 Hgb 11.6 g/dL (12.0-16.0) L 04/03/21 Hct 36.1 % (37-47) L 04/03/21 Plt Count 273 K/uL (130-400) 04/03/21 Neutrophils (%) (Auto) 58.5 % 04/03/21 Lymphocytes (%) (Auto) 31.4 % 04/03/21 Monocytes # (Auto) 0.83 K/uL (0.11-0.59) H 04/03/21 Eosinophils # (Auto) 0.05 K/uL (0-0.5) 04/03/21 Immature Granulocyte % (Auto) 0.3 % 04/03/21 Neutrophils # (Auto) 5.36 K/uL (1.4-6.5) 04/03/21 Lymphocytes # (Auto) 2.88 K/uL (1.2-3.4) 04/03/21 Monocytes # (Auto) 0.83 K/uL (0.11-0.59) H 04/03/21 Eosinophils # (Auto) 0.05 K/uL (0-0.5) 04/03/21 Basophils # (Auto) 0.02 K/uL (0-0.2) 04/03/21 Immature Granulocyte # (Auto) 0.03 K/uL (0.00-0.02) H 04/03/21 Na 137 mmol/L (136-145) 04/03/21 K 3.6 mmol/L (3.5-5.1) 04/03/21 Cl 105 mmol/L (98-107) 04/03/21 CO2 22 mmol/L (21-32) 04/03/21 Anion Gap 10 (3-11) 04/03/21 BUN 14 mg/dl (6-23) 04/03/21 Creatinine 0.62 mg/dl (0.6-1.2) 04/03/21 BUN/Creatinine Ratio 22.6 (10-20) H 04/03/21 Glucose Level 111 mg/dl (70-99(Fasting)) H 04/03/21 Ca 9.4 mg/dl (8.5-10.1) 04/03/21 Total Bilirubin 0.6 mg/dl (0.2-1.0) 04/03/21 AST/SGOT 24 U/L (13-39) 04/03/21 ALT/SGPT 42 U/L (7-52) 04/03/21 Alkaline Phosphatase 74 U/L (34-104) 04/03/21 Total Protein 7.5 gm/dl (6.0-8.3) 04/03/21 Albumin 4.1 gm/dl (3.4-5.0) 04/03/21 Globulin 3.4 gm/dl (2.5-4.0) 04/03/21 Albumin/Globulin Ratio 1.2 (0.9-2) 04/03/21 Troponin I < 0.03 ng/ml (0-0.04) 04/03/21 Procalcitonin < 0.05 ng/ml (0-0.5) 04/03/21 PTT 23.9 Seconds (21.0-31.0) 04/03/21 INR 1.0 (0.9-1.1) 04/03/21 SARS-CoV-2, RNA, NAAT NEGATIVE (NEGATIVE) 04/03/21 Chest X-Ray 04/03/21 Code Status & VTE Plan Code Status Full Code VTE Prophylaxis Plan VTE Prophylaxis will be ordered: Yes Supervising Physician Co-Signing Physician Notes 65-year-old female who has significant past medical history of HTN, HLD, T2DM, VANESA on CPAP, spontaneous subarachnoid hemorrhage in 2012, hypothyroidism, RLS, obesity presented to the ED 04/03 at the referral of PCP due to being found in A. fib in the clinic. Patient had recent Covid infection in February. Patient had cough all along since then, which has been worsening since last Saturday along with shortness of breath and reports pale yellow sputum in the morning to clear sputum in the evening. Patient reports feeling feverish at times. Denies any headache or dizziness or chest pain or palpitation or acute changes in bowel or bladder habit. Family history significant for cardiac disease. Father of MS at age 52, sister of MS at age 53, brother has some open heart surgery, mother has pacemaker and some kind of cancer. Labs, imaging, EKG reviewed. In the ED patient was found to be in A. fib with RVR. Cardiology made aware. Diltiazem drip. CTA chest sent to rule out PE, to be started on Eliquis. Equal. Trend troponins. EKG in the morning. Upon examination: GENERAL: Alert and oriented x3. NAD, on RA. HEENT: No pallor, no icterus. Pupils equal, round and reactive to light. Oral mucosa moist. NECK: No JVD, no neck masses. HEART: S1 and S2 heard. Irregular rate and rhythm. Murmur could not be appreciated, no gallop. RESPIRATORY SYSTEM: Normal AP diameter. No accessory muscle use. No wheezing, no crackles. ABDOMEN: Soft, bowel sounds present, nontender, no distention. CENTRAL NERVOUS SYSTEM: No facial droop. Speech is clear. Obeys simple commands. Moves extremities. EXTREMITIES: 1+ BLE edema, no erythema seen. I have seen and examined the patient and have discussed the case with the provider above. I agree with the assessment and plan as stated.
[2021-04-03] MEDS ORDERED: STAT IV Infusion **Titration per Protocol STA (17:39)
[2021-04-03] MEDS ORDERED: MAGNESIUM HYDROXIDE SUSP 30 ML UDC PO PRN (18:41)
[2021-04-03] MEDS ORDERED: GLUCOSE 40% GEL 15 GM TUBE PO PRN (18:41)
[2021-04-03] MEDS ORDERED: ONDANSETRON INJ 2 MG/ML 2 ML VIAL IV PRN (18:41)
[2021-04-03] MEDS ORDERED: ACETAMINOPHEN 325 MG TAB PO PRN (18:41)
[2021-04-03] MEDS ORDERED: ALUMINUM/MAGNESIUM SUSP 30 ML UDC PO PRN (18:41)
[2021-04-03] MEDS ORDERED: CARBOHYDRATES FOR HYPOGLYCEMIA PO PRN (18:41)
[2021-04-03] MEDS ORDERED: GLUCAGON FOR INJ 1 MG VIAL SQ PRN (18:41)
[2021-04-03] MEDS ORDERED: DEXTROSE 50% 50 ML SYRINGE IV PRN (18:41)
[2021-04-03] MEDS ORDERED: GLUCOSE 10 TABS/TUBE PO PRN (18:41)
[2021-04-03] MEDS ORDERED: POLYETHYLENE (MIRALAX) 17 GM PACK PO PRN (18:41)
[2021-04-03] MEDS: dilTIAZem HCL 125 MG in DEXTROSE 5% 100 ML IV SCH (19:30)
[2021-04-03] MEDS: ATORVASTATIN 40 MG TAB PO SCH (20:27)
[2021-04-03] MEDS: INSULIN ASPART PER UNIT SC SCH (20:34)
[2021-04-03] MEDS: METOPROLOL TARTRATE 25 MG TAB PO SCH (20:40)
[2021-04-03] MEDS ORDERED: OPTIRAY 320 125ml IV ONE (21:35)
[2021-04-03] MEDS ORDERED: APIXABAN 5 MG TABLET PO SCH (22:45)
[2021-04-04] MEDS: LEVOTHYROXINE SODIUM 112 MCG TABLET PO SCH (05:47)
[2021-04-04 05:55] LABS: Hematocrit (blood only) 36.4 % (37-47); Hemoglobin 11.8 g/dL (12.0-16.0); Mean Corpuscular Hemoglobin 28.6 pg (25-34); Mean Corpuscular Hgb Conc 32.4 g/dL (32-36); Mean Corpuscular Volume 88.1 fL (80-100); Mean Platelet Volume 10.7 fL (7.4-10.4); Platelet Count 254 K/uL (130-400); RDW Coefficient of Variation 15.5 % (11.5-14.5); RDW Standard Deviation 49.8 fL (36.4-46.3); Red Blood Count 4.13 M/uL (4.2-5.4); White Blood Count 6.78 K/uL (4.8-10.8)
[2021-04-04 06:13] LABS: Albumin Globulin Ratio 1.3 (0.9-2); Albumin Level 3.9 gm/dl (3.4-5.0); BUN Creatinine Ratio 18.8 (10-20); Bilirubin,Total 0.9 mg/dl (0.2-1.0); Calcium 9.1 mg/dl (8.5-10.1); Creatinine Clr Calc Pharmacy 99.6 ml/min; Est GFR (African American) 110.1 ml/min; Magnesium 1.9 mg/dl (1.7-2.4); Potassium 4.2 mmol/L (3.5-5.1); Total Protein 6.9 gm/dl (6.0-8.3)
--- NOTE | 2021-04-04 06:47 | Electrocardiogram Report ---
Test Reason : Blood Pressure : / mmHG Vent. Rate : 152 BPM Atrial Rate : 312 BPM P-R Int : 000 ms QRS Dur : 078 ms QT Int : 310 ms P-R-T Axes : 000 031 066 degrees QTc Int : 492 ms Atrial fibrillation with rapid ventricular response Nonspecific ST abnormality Abnormal ECG When compared with ECG of 22-MAY-2012 07:13, Atrial fibrillation has replaced Sinus rhythm Vent. rate has increased BY 99 BPM Confirmed by Darryl Bermeo ([id number]) on 04/04/2021 6:47:34 AM Referred By: Paul Vazquez Confirmed By:Darryl Bermeo
[2021-04-04 07:23] LABS: Estimated Average Glucose 148 mg/dl; Hemoglobin A1C 6.8 % (4.5-5.6)
--- NOTE | 2021-04-04 07:29 | CT Scan Report ---
CT angio chest PE protocol CLINICAL HISTORY: Shortness of breath. Evaluate for pulmonary embolus COMPARISON STUDY: 05/21/2012 and portable chest from 04/03/2021 CT DOSE: 820.73 mGy.cm TECHNIQUE: CT Angio of the chest was performed.followed by image post processing with coronal, and s agittal MIP reformats. Contrast Volume: Optiray 320, 120 ml FINDINGS: Vasculature: There is homogeneous perfusion of the pulmonary vasculature bilaterally. No intraluminal filling defects or evidence for pulmonary embolus is seen. Airway: The airway is clear. No endobronchial lesion is identified. Lungs: There is breathing motion artifact. There is also diffuse prominence of the interstitial amanda ngs with minimal groundglass opacities most characteristic of vascular congestion. Additionally, nume constanza noncalcified pulmonary nodules are present throughout both lungs. These findings are highly susp icious for metastatic disease. No confluent alveolar opacities are seen. Pleura: There is no evidence for pleural effusion. There is no evidence for pneumothorax. Mediastinum: There are numerous prevascular lymph nodes present measuring 1 cm or less. Additionally, there is an enlarged lymph node within the AP window 1.8 cm in greatest diameter. This represents a interval change from previous CT and is highly suspicious for pathologic adenopathy. The heart size is mildly enlarged. Coronary artery calcification is present. The thoracic aorta is wi thin normal limits. There is no evidence for pericardial effusion. Upper abdomen:The adrenal glands are normal bilaterally. Osseous structures: There is no acute osseous pathology. Impression: 1. No CTA evidence for pulmonary embolus. 2. Interlobular septal thickening and hazy groundglass pattern most characteristic of vascular conges tion. No confluent alveolar opacities are seen. 3. However, there are numerous noncalcified pulmonary nodules throughout both lungs highly suspicious for metastatic disease. 4. There is also evidence for suspected pathologic adenopathy suspicious for metastatic disease as we ll. No smoking history or history of malignancy was provided. ACT 112: Negative or not required by law. Electronically signed by: Florin Nguyen M.D. 04/04/2021 7:28 AM
[2021-04-04] MEDS: INSULIN ASPART PER UNIT SC SCH ×4 (07:39→20:02)
--- NOTE | 2021-04-04 08:19 | Hospitalist Progress Note ---
Date of Service April 04, 2021 Assessment & Plan (1) Atrial fibrillation with rapid ventricular response: Plan: This is a 65-year-old female who has significant past medical history of HTN, HLD, T2DM, VANESA on CPAP, history of a subarachnoid hemorrhage in 2013 spont aneous, hypothyroidism, RLS, obesity who presents to ED at the referral of PCP due to being found in atrial fibrillation in clinic. Atrial fibrillation RVR Recent history of COVID-19, diagnosed 03/08/2021 Admit to PCU Echocardiogram pending Start diltiazem drip for rate control- 10mg/hr currently [id number] 3 (F, HTN, DM) Started Eliquis 5mg BID yesterday but with multiple lung nodules seen--> will switch her to heparin drip for now in the event she gets biopsy CTA chest negative for PE but shows multiple non calcified lung nodules concerning for metastatic disease (see below) Cardiology consult pending Multiple Lung nodules Mediastinal lymphadenopathy Concerning for underlying malignancy Will obtain CT abdomen/pelvis with contrast to evaluate further Patient reports being up to date with her mammogram and colonoscopy Will ask for Pulmonology evaluation to determine if she can get biopsy here T2DM last a1c 6.6 hold metformin a1c in a.m. monitor FBS place on novolog SS HTN Continue Norvasc HLD Continue statin VANESA CPAP at HS Hypothyroidism Levothyroxine recently increased from 100 mcg 125 mcg on 02/28/2021 secondary to TSH 5.81, normal free T4 TSH here 0.18 Reduce levothyroxine to 112 mcg Repeat in 4 weeks Dispo: PCU FULL CODE PCP: George DVT prophylaxis- heparin drip Admission and Anticipated Discharge Date Admission Date: April 03, 2021 Subjective Feels less short of breath. Remains on A fib, Cardizem drip increased to 10mg/hr Physical Exam Physical Exam: No acute distress, comfortable Respiratory: clear, no wheezing/rhonchi/rales Cardiovascular: Irregular, HR on telemetry 120-140s, no murmurs/rubs/gallops Gastrointestinal (Abdomen): soft, non tender Musculoskeletal: no edema Neurologic: awake, alert, spontaneously moving extremities Results & Data Results & Data ([facility]) Vital Signs (Past 12 Hours) Vital Signs Temp Pulse Pulse Resp BP Pulse Ox 04/04/21 08:14 36.8 C 131 H 20 120/61 95 04/04/21 04:28 36.8 C 96 H 16 118/71 93 04/03/21 22:56 36.6 C 111 H 16 137/85 97 04/03/21 21:49 144 H 20 96 Laboratory Results Short CBC 04/03/21 04/04/21 Range/Units 14:55 05:28 WBC 9.17 6.78 (4.8-10.8) K/uL Hgb 11.6 L 11.8 L (12.0-16.0) g/dL Hct 36.1 L 36.4 L (37-47) % Plt Count 273 254 (130-400) K/uL BMP 04/03/21 04/04/21 14:55 05:28 Sodium 137 136 Potassium 3.6 4.2 Chloride 105 106 Carbon Dioxide 22 24 BUN 14 12 Creatinine 0.62 0.64 Glucose 111 H 109 H Calcium 9.4 9.1 Cardiac Enzymes 04/03/21 04/03/21 04/04/21 Range/Units 14:55 19:44 01:44 Troponin I < 0.03 < 0.03 < 0.03 (0-0.04) ng/ml Liver Function 04/03/21 04/04/21 Range/Units 14:55 05:28 Total Bilirubin 0.6 0.9 (0.2-1.0) mg/dl AST 24 48 H (13-39) U/L ALT 42 70 H (7-52) U/L Alkaline Phosphatase 74 79 (34-104) U/L Albumin 4.1 3.9 (3.4-5.0) gm/dl Medications Administered Current Inpatient Medications Acetaminophen (Acetaminophen 325 Mg Tab) 650 mg PO Q4H PRN PRN Reason: Pain or Fever Stop: 05/03/21 18:40 Al Hydrox/Mg Hydrox/Simethicone (Aluminum/Magnesium Susp 30 Ml Udc) 15 ml PO Q4H PRN PRN Reason: Dyspepsia Stop: 05/03/21 18:40 Amlodipine Besylate (Amlodipine Besylate 5 Mg Tab) 5 mg PO DAILY CANDELARIA Stop: 05/04/21 08:59 Apixaban (Apixaban 5 Mg Tablet) 5 mg PO BID CANDELARIA Stop: 05/03/21 22:44 Last Admin: 04/03/21 22:49 Dose: 5 mg Documented by: Atorvastatin Calcium (Atorvastatin 40 Mg Tab) 40 mg PO HS CANDELARIA Stop: 05/03/21 20:59 Last Admin: 04/03/21 20:27 Dose: 40 mg Documented by: Dextrose (Dextrose 50% 50 Ml Syringe) 25 - 50 ml IV UD PRN; Protocol PRN Reason: Hypoglycemia Protocol Stop: 05/03/21 18:40 Glucagon (Glucagon For Inj 1 Mg Vial) 1 mg SQ UD PRN; Protocol PRN Reason: Hypoglycemia Protocol Stop: 05/03/21 18:40 Glucose (Glucose 10 Tabs/Tube) 4 - 8 tabs PO UD PRN; Protocol PRN Reason: Hypoglycemia Protocol Stop: 05/03/21 18:40 Glucose (Glucose 40% Gel 15 Gm Tube) 15 - 30 gm PO UD PRN; Protocol PRN Reason: Hypoglycemia Protocol Stop: 05/03/21 18:40 Diltiazem HCl 125 mg/ Dextrose 125 mls @ 5 mls/hr IV .Q24H CANDELARIA; Protocol Stop: 05/03/21 17:44 Last Admin: 04/03/21 19:30 Dose: 5 mg/hr, 5 mls/hr Documented by: Insulin Aspart (Insulin Aspart Per Unit) 0 units SC ACHS [facility] Stop: 05/03/21 20:59 Last Admin: 04/04/21 07:39 Dose: Not Given Documented by: Levothyroxine Sodium (Levothyroxine Sodium 112 Mcg Tablet) 112 mcg PO DAILYBB [facility] Stop: 05/04/21 06:29 Last Admin: 04/04/21 05:47 Dose: 112 mcg Documented by: Magnesium Hydroxide (Magnesium Hydroxide Susp 30 Ml Udc) 30 ml PO Q12H PRN PRN Reason: Constipation Stop: 05/03/21 18:40 Magnesium Oxide (Magnesium Oxide 400 Mg Tab) 400 mg PO BID [facility] Stop: 05/04/21 08:59 Metoprolol Tartrate (Metoprolol Tartrate 25 Mg Tab) 25 mg PO QID [facility] Stop: 05/03/21 20:59 Last Admin: 04/03/21 20:40 Dose: 25 mg Documented by: Miscellaneous (Carbohydrates For Hypoglycemia ) 15 - 30 gm PO UD PRN PRN Reason: Hypoglycemia Protocol Stop: 05/03/21 18:40 Ondansetron HCl (Ondansetron Inj 2 Mg/Ml 2 Ml Vial) 4 mg IV Q6H PRN PRN Reason: Nausea Stop: 05/03/21 18:40 Pantoprazole Sodium (Pantoprazole 40 Mg Tab) 40 mg PO DAILY CANDELARIA Stop: 05/04/21 08:59 Polyethylene Glycol (Polyethylene (Miralax) 17 Gm Pack) 17 gm PO DAILY PRN PRN Reason: Constipation Stop: 05/03/21 18:40
[2021-04-04] MEDS: amLODIPine BESYLATE 5 MG TAB PO SCH (08:30)
[2021-04-04] MEDS: PANTOprazole 40 MG TAB PO SCH (08:31)
[2021-04-04] MEDS: METOPROLOL TARTRATE 25 MG TAB PO SCH (08:31)
[2021-04-04] MEDS ORDERED: ASCORBIC ACID 500 MG TAB PO SCH (09:00)
[2021-04-04] MEDS ORDERED: CHOLECALCIFEROL 1,000 UNITS 25 MCG TAB PO SCH (09:00)
[2021-04-04] MEDS: MAGNESIUM OXIDE 400 MG TAB PO SCH ×2 (09:55→20:54)
[2021-04-04] MEDS ORDERED: OPTIRAY 320 100ml IV ONE (10:40)
[2021-04-04] MEDS: HEPARIN SODIUM/DEXTROSE 25,000 UNITS/500 ML BAG IV SCH (10:59)
--- NOTE | 2021-04-04 11:03 | Cardiology Consultation ---
Date of Consultation April 04, 2021 Assessment & Plan (1) Atrial fibrillation with rapid ventricular response: Atrial fibrillation with rapid ventricular response: [id number] score of at least 3 for risk factors of female, h/o HTN, DM, and likely age as 65 years old is very close to 67 years old. -Continue diltiazem IV for now, increase oral metoprolol to 50 mg PO every 6 hours. -Continue heparin for stroke prophylaxis with caution given history of spontaneous subarachnoid hemorrhage in 2012. TSH low at 0.184 uiu/ml. Agree with reducing levothyroxine dose. -If ventricular rates do not improve with medical therapy , KELLY cardioversion is a consideration, however need to come up with a plan with regards to lung nodule also , with regards to anticoagulation as uninterrupted anticoagulation necessary for 4 weeks post cardioversion. Pulmonary Nodules: -CT Abd and pelvis obtained by hospitalist service, report pending. -Agree with pulmonary consult. Family History of Premature CAD in father, sister: -Continue atorvastatin History of Present Illness Attending Physician: Umesh Salas MD History of Present Illness Namrata Faroqo is a 65 year old female seen in cardiology consultation per the request of Amanda Nunes PA-C of the [facility] service for the evaluation of newly recognized atrial fibrillation with rapid ventricular response. Patient is a non smoker. She had a history of HTN, DM2, and dyslipidemia.She had been in with SARS -CoV-2 with symptom onset on 03/04/21. She however presented to primary care yesterday for complaints of residual shortness of breath and was found to have atrial fibrillation with rapid ventricular response. At CTA of the chest revealed no evidence of pulmonary embolism however, she was found to have multiple pulmonary nodules and lymphadenopathy, concerning for malignancy. She was admitted to the telemetry floor and her ventricular rates remain in the range of 110-130 bpm at rest and up to 160 bpm in the rest room this morning while on diltiazem infusion at 10 mg/hr and metoprolol tartrate 25 mg every 6 hours orally. She is on heparin for stroke prevention. As noted in the admission H and P she has a history of spontaneous subarachnoid hemorrhage in 2012. This was felt to be small and left parietal region. She had follow-up imaging in June 2012 which showed resolution of hemorrhage. Allergies Allergy/AdvReac Type Severity Reaction Status Date / Time hydrocodone Allergy Intermediate RASH Verified 04/03/21 16:59 Sulfa (Sulfonamide Allergy Mild GI SYMPTOMS Verified 04/03/21 16:59 Antibiotics) Home Medications Medication Instructions Recorded Confirmed Type amlodipine 5 mg tablet 5 mg PO DAILY 04/03/21 04/03/21 History ascorbic acid (vitamin C) 500 mg 0 mg PO DAILY 04/03/21 04/03/21 History tablet (Vitamin C) aspirin 81 mg tablet,delayed 81 mg PO DAILY 04/03/21 04/03/21 History release atorvastatin 40 mg tablet 40 mg PO HS 04/03/21 04/03/21 History cholecalciferol (vitamin D3) 25 0 mcg PO DAILY 04/03/21 04/03/21 History mcg (1,000 unit) capsule (Vitamin D3) glucosamine sulf dipot 1 cap PO BID 04/03/21 04/03/21 History chlr,msm,chond 550 mg-C 30 mg-jose 1 mg capsule (Glucosamine Chondroitin) levothyroxine 100 mcg tablet 100 mcg PO DAILYBB 04/03/21 04/03/21 History levothyroxine 25 mcg tablet 25 mcg PO DAILYBB 04/03/21 04/03/21 History metformin 500 mg tablet,extended 500 mg PO BIDM 04/03/21 04/03/21 History release 24 hr multivitamin 1 tab PO DAILY 04/03/21 04/03/21 History omega-3 fatty acids 1,000 mg 1,000 mg PO DAILY 04/03/21 04/03/21 History capsule omeprazole 20 mg capsule,delayed 20 mg PO DAILY 04/03/21 04/03/21 History release turmeric 400 mg capsule 400 mg PO DAILY 04/03/21 04/03/21 History vitamin E 400 unit capsule 0 unit PO DAILY 04/03/21 04/03/21 History zinc 50 mg tablet 50 mg PO DAILY 04/03/21 04/03/21 History Patient History Medical History Calculus of ureter (05/21/12) Discectomy for intervertebral herniated disc, nucleus pulposus (05/21/12) History of COVID-19 HLD (hyperlipidemia) Hypertension Hypothyroid VANESA on CPAP Restless legs (05/21/12) Subarachnoid hemorrhage determined to be benign, spontaneous, 2012, seen by Dr. Mateer, f/u MRI showed resolution of bleed T2DM (type 2 diabetes mellitus) Surgical History History of colonoscopy History of laminectomy History of tubal ligation Family History Father , 52 Myocardial infarction Brother Coronary heart disease Sister , 53 Myocardial infarction Mother Cancer Social History Smoking Status: Never smoker Second Hand Exposure: No; Do You Dip or Chew Tobacco: No; Hx Alcohol Use: No Hx Substance Use: No Preferred Language: Greenlandic Communication Ability: Effective Edge Finisher Required: No Beliefs That Will Affect Care: None marital status: Current Living Situation: Family Current Living Situation Comment: , daughter and 3 granddaughters Other Information That Helps Us Care for You: No Feels Safe at Home: Yes Safety Concerns: Feels Safe At This Time Assistive Devices: Glasses Review of Systems Review of Systems: All systems reviewed & are unremarkable except as noted in HPI & below Physical Exam Constitutional: + obese Respiratory: mildly reduced BS at the bases Cardiovascular: Rate/Rhythm: + tachycardic and + irregularly irregular Heart Sounds: no murmur Extremities: no edema Gastrointestinal (Abdomen): normal bowel sounds, soft, nontender, no hepatosplenomegaly Neurologic: PERRL, EOMI, accommodation nl, no face palsy, no dysarthria Results & Data ([facility]) Vital Signs (Past 12 Hours) Vital Signs Temp Pulse Resp BP BP Pulse Ox 04/04/21 09:31 122/70 04/04/21 08:14 36.8 C 131 H 20 120/61 95 04/04/21 04:28 36.8 C 96 H 16 118/71 93 04/03/21 22:56 36.6 C 111 H 16 137/85 97 Laboratory Results Cardiac Enzymes 04/03/21 04/03/21 04/04/21 Range/Units 14:55 19:44 01:44 AST 24 (13-39) U/L Troponin I < 0.03 < 0.03 < 0.03 (0-0.04) ng/ml 04/04/21 Range/Units 05:28 AST 48 H (13-39) U/L Troponin I (0-0.04) ng/ml Coagulation 04/03/21 Range/Units 14:55 PT 10.3 (9.0-12.0) Seconds APTT 23.9 (21.0-31.0) Seconds CBC 04/03/21 04/04/21 Range/Units 14:55 05:28 WBC 9.17 6.78 (4.8-10.8) K/uL RBC 4.11 L 4.13 L (4.2-5.4) M/uL Hgb 11.6 L 11.8 L (12.0-16.0) g/dL Hct 36.1 L 36.4 L (37-47) % Plt Count 273 254 (130-400) K/uL Neut # (Auto) 5.36 (1.4-6.5) K/uL Lymph # (Auto) 2.88 (1.2-3.4) K/uL [place] # (Auto) 0.83 H (0.11-0.59) K/uL Eos # (Auto) 0.05 (0-0.5) K/uL Baso # (Auto) 0.02 (0-0.2) K/uL Comprehensive Metabolic Panel 04/03/21 04/04/21 Range/Units 14:55 05:28 Sodium 137 136 (136-145) mmol/L Potassium 3.6 4.2 (3.5-5.1) mmol/L Chloride 105 106 (98-107) mmol/L Carbon Dioxide 22 24 (21-32) mmol/L BUN 14 12 (6-23) mg/dl Creatinine 0.62 0.64 (0.6-1.2) mg/dl Glucose 111 H 109 H (70-99(Fasting)) mg/dl Calcium 9.4 9.1 (8.5-10.1) mg/dl AST 24 48 H (13-39) U/L ALT 42 70 H (7-52) U/L Alkaline Phosphatase 74 79 (34-104) U/L Total Protein 7.5 6.9 (6.0-8.3) gm/dl Albumin 4.1 3.9 (3.4-5.0) gm/dl Intake and Output 04/03/21 04/04/21 04/04/21 22:59 06:59 14:59 Intake Total 1100 / 1100 Balance 1100 / 1100 Intake: IV 1100 / 1099 Magnesium Sulfate / D5w 1 gm In 100 / 100 100 ml @ 100 mls/hr IV NOW STA Rx#:[id number] Sodium Chloride 0.9% 1000ML 1, 1000 / 1000 000 ml @ 999 mls/hr IV .Q1H1M ONE Rx#:[id number] Other: # Unmeasured Voids 1 3 Weight 98.4 kg 98.4 kg 97.7 kg Weight Measurement Method [facility] Standing Scale Standing Scale Patient Weight 04/05/21 06:59 Weight 97.7 kg Diagnostic Findings EKG performed 04/03/21: AF RVR, 152 bpm, mild nonspecific repolarization changes. EKG performed 04/04/21: AF at 127 bpm , improvement in the repolarization changes. TTecho: LVEF 55%, mild Left atrial enlargement, mild MR, Mild TR, estimated PASP 35 mm Hg (upper normal) , borderline RV hypokinesis.
--- NOTE | 2021-04-04 11:41 | CT Scan Report ---
CT abd pelvis IV con only CLINICAL HISTORY: MULTIPLE LUNG NODULES, EVAL FOR MALIGNANCY COMPARISON STUDY: CT of the chest from 04/03/2021 CT DOSE: 1043.81 mGy.cm TECHNIQUE: Standard CT of the Abdomen and Pelvis was performed with IV contrast. A dose lowering sabrina hnique was utilized adhering to the principles of ALARA. Contrast Volume: Optiray 320, 95 ml. The patient did not receive oral contrast. FINDINGS: Abdominal cavity: There is no evidence for abdominal mass, adenopathy or ascites. Liver: There is homogeneous attenuation of the liver parenchyma. There is no evidence for enhancing m ass lesion. Spleen: There is homogeneous attenuation of the splenic parenchyma. There is no enhancing mass lesion . Pancreas: There is homogeneous attenuation of the pancreatic parenchyma. There is no evidence for mas s lesion or peripancreatic fluid collection. Gall Bladder: The gallbladder is well distended with no evidence for intraluminal calculi, wall thick ening or pericholecystic edema. Adrenal glands: The adrenal glands are normal in size and attenuation. There is no evidence for enhan cing mass lesion. Kidneys: There is homogeneous attenuation of the renal parenchyma bilaterally. There is no evidence f or renal calculus or hydronephrosis. There is no evidence for enhancing mass. Bowel: The bowel loops are normally placed within the abdomen and pelvis without evidence for dilatat ion or obstruction. There is no evidence for mass lesion. There are no inflammatory changes present. There is no evidence for free air. There is evidence for a normal appendix in the right lower quadran t. Bladder: The bladder is within normal limits with no evidence for focal mass, calculus or diverticulu m. Residual contrast is present in the bladder from yesterday's CTA. : There is no evidence for pelvic mass or adenopathy. There is no evidence for pelvic ascites. Vasculature: There is no evidence for aneurysmal dilatation of the abdominal aorta. Osseous structures: There is no acute osseous pathology. IMPRESSION: 1. No acute intra-abdominal or pelvic abnormality. No evidence for gross neoplasm or metastatic disea se within the abdomen or pelvis. ACT 112: Negative or not required by law. Electronically signed by: Florin Nguyen M.D. 04/04/2021 11:39 AM
[2021-04-04] MEDS: dilTIAZem HCL 125 MG in DEXTROSE 5% 100 ML IV SCH (12:25)
[2021-04-04] MEDS ORDERED: DIGOXIN 250 MCG in SYRINGE 9 ML IV ONE (13:00)
[2021-04-04] MEDS: METOPROLOL TARTRATE 50 MG TAB PO SCH ×3 (14:19→20:54)
[2021-04-04 17:20] LABS: Partial Thromboplastin Ratio 1.2
--- NOTE | 2021-04-04 18:26 | Pulmonary Consultation ---
Date of Consultation April 04, 2021 Assessment & Plan (1) Abnormal CT scan, chest: (2) Multiple pulmonary nodules determined by computed tomography of lung: (3) Long COVID: (4) Atrial fibrillation with rapid ventricular response: 65-year-old female with a history of obesity, VANESA on CPAP, diabetes mellitus and dyslipidemia found to have atrial fibrillation during hospital admission. Incidentally noted to have groundglass opacities in her CT chest with small pulmonary nodules and mediastinal lymphadenopathy. Differential for the CT chest findings is broad including malignancy, benign etiologies such as sarcoidosis, other inflammatory lung conditions such as hypersensitivity pneumonitis and possibly a post COVID-19 inflammatory process. The findings may also be related to atypical pulmonary edema. Often times mediastinal adenopathy could be seen with acute congestive heart failure such as in the setting of atrial fibrillation with rapid ventricular response. We will temporarily plan for bronchoscopy in the OR tomorrow pending availability and scheduling. Please hold heparin infusion at 4 AM and keep the patient n.p.o. after midnight. Should her heart rate worsen overnight and tomorrow morning, will hold off on EBUS until she is more stable. She understa nds the risk and benefits of an EBUS bronchoscopy which includes possible risk of mediastinitis, pneumothorax, bleeding and need for repeat procedure or other procedures such as a mediastinoscopy. Thank you for the consult. Pulmonary continue to follow with you. All questions of the patient and her were answered to their satisfaction. History of Present Illness Reason for Consultation: Mediastinal adenopathy and small pulmonary nodules Attending Physician: Umesh Salas MD History of Present Illness 65-year-old female with a past medical history of hypertension, diabetes mellitus type 2, obesity and dyslipidemia who presented to the hospital due to shortness of breath. She went to her PCP who noted that her heart rate was irregular and directed her to the ER. She notes that she had COVID-19 last month. She works at the [employer]. She has had a lingering cough with shortness of breath. She also notes lower extremity edema. She denies any history of tobacco abuse other than social smoking as a teenager. She notes that her mother of an unknown cancer. She denies any history of lung cancer. She was admitted to the hospital due to atrial fibrillation with r apid jugular response. She is currently on a heparin infusion and diltiazem infusion. Her heart rates have improved significantly and are currently in the 90s. She had a chest CTA which did not demonstrate pulmonary embolism, but did demonstrate paratracheal and subcarinal lymphadenopathy. Additionally seen were groundglass opacities throughout the bilateral lungs, increased intralobular thickening and small nondiscrete lung nodules bilaterally. A concern of metastatic malignancy was raised by the radiologist and pulmonary consult was recommended. Her calcium level is within normal limits. LFTs show mild elevation/transaminitis. Sodium is within normal limits. Cardiac echo completed today noted to have a normal LVEF of 55%. Left atrium was mildly dilated. Left ventricle with mild concentric LVH. Allergies Allergy/AdvReac Type Severity Reaction Status Date / Time hydrocodone Allergy Intermediate RASH Verified 04/03/21 16:59 Sulfa (Sulfonamide Allergy Mild GI SYMPTOMS Verified 04/03/21 16:59 Antibiotics) Home Medications Medication Instructions Recorded Confirmed Type amlodipine 5 mg tablet 5 mg PO DAILY 04/03/21 04/03/21 History ascorbic acid (vitamin C) 500 mg 0 mg PO DAILY 04/03/21 04/03/21 History tablet (Vitamin C) aspirin 81 mg tablet,delayed 81 mg PO DAILY 04/03/21 04/03/21 History release atorvastatin 40 mg tablet 40 mg PO HS 04/03/21 04/03/21 History cholecalciferol (vitamin D3) 25 0 mcg PO DAILY 04/03/21 04/03/21 History mcg (1,000 unit) capsule (Vitamin D3) glucosamine sulf dipot 1 cap PO BID 04/03/21 04/03/21 History chlr,msm,chond 550 mg-C 30 mg-jose 1 mg capsule (Glucosamine Chondroitin) levothyroxine 100 mcg tablet 100 mcg PO DAILYBB 04/03/21 04/03/21 History levothyroxine 25 mcg tablet 25 mcg PO DAILYBB 04/03/21 04/03/21 History metformin 500 mg tablet,extended 500 mg PO BIDM 04/03/21 04/03/21 History release 24 hr multivitamin 1 tab PO DAILY 04/03/21 04/03/21 History omega-3 fatty acids 1,000 mg 1,000 mg PO DAILY 04/03/21 04/03/21 History capsule omeprazole 20 mg capsule,delayed 20 mg PO DAILY 04/03/21 04/03/21 History release turmeric 400 mg capsule 400 mg PO DAILY 04/03/21 04/03/21 History vitamin E 400 unit capsule 0 unit PO DAILY 04/03/21 04/03/21 History zinc 50 mg tablet 50 mg PO DAILY 04/03/21 04/03/21 History Patient History Medical History (Updated 04/04/21 @ 18:22 by Zane Medel MD) Abnormal CT scan, chest Calculus of ureter (05/21/12) Discectomy for intervertebral herniated disc, nucleus pulposus (05/21/12) History of COVID-19 HLD (hyperlipidemia) Hypertension Hypothyroid Long COVID Multiple pulmonary nodules determined by computed tomography of lung VANESA on CPAP Restless legs (05/21/12) Subarachnoid hemorrhage determined to be benign, spontaneous, 2012, seen by Dr. Montez, f/u MRI showed resolution of bleed T2DM (type 2 diabetes mellitus) Surgical History History of colonoscopy History of laminectomy History of tubal ligation Family History Father , 52 Myocardial infarction Brother Coronary heart disease Sister , 53 Myocardial infarction Mother Cancer Social History Smoking Status: Never smoker Second Hand Exposure: No; Do You Dip or Chew Tobacco: No; Hx Alcohol Use: No Hx Substance Use: No Preferred Language: Luxembourgish Communication Ability: Effective Bus Driver/Monitor Required: No Beliefs That Will Affect Care: None marital status: Current Living Situation: Family Current Living Situation Comment: , daughter and 3 granddaughters Other Information That Helps Us Care for You: No Feels Safe at Home: Yes Safety Concerns: Feels Safe At This Time Assistive Devices: None Review of Systems Review of Systems: All systems reviewed & are unremarkable except as noted in HPI & below Physical Exam Physical Exam: Constitutional: Obese appearing female no apparent distress sitting in bed. Eyes: Pupils are equal round and reactive to light. Conjunctivae are normal. Anicteric sclera. Ears nose, mouth and throat: No deformities. Neck: Trachea is midline. Visual inspection is normal. Respiratory: Clear to auscultation bilaterally. No use of accessory muscles. No significant clubbing noted. Cardiovascular: Regular rate and rhythm. No murmurs. No edema. Gastrointestinal: Normal bowel sounds, soft, nontender and nondistended. No hepatosplenomegaly noted. Musculoskeletal: No cyanosis. Patient is able to move all extremities. Skin: No rashes, warm dry and intact. Neurologic: No obvious focal neurological deficits seen. Psychiatric: Alert and oriented x3 with a euthymic affect. Results & Data Results & Data ([facility]) Vital Signs (Past 12 Hours) Vital Signs Temp Pulse Pulse Resp BP BP Pulse Ox 04/04/21 15:58 36.7 C 93 H 20 113/72 95 04/04/21 15:16 104 H 04/04/21 14:18 116/66 04/04/21 13:25 117 H 04/04/21 11:35 36.8 C 107 H 19 105/49 L 96 04/04/21 09:31 122/70 04/04/21 08:14 36.8 C 131 H 20 120/61 95 PG Care Time/CCT Total # of Minutes Spent Total Time Spent with Patient: Total time spent is greater than 50% in coordination of care (as documented) at patient's floor/unit and/or counseling patient: Coding Level of Care Code 61816 Inpt Consult Level [address] scan, chest R93.89 Multiple pulmonary nodules determined by computed tomography of lung R91.8 Long COVID U09.9 Atrial fibrillation with rapid ventricular response I48.91
[2021-04-04] MEDS ORDERED: HEPARIN SOD (PORCINE) 1000 UNIT/ML IV ONE (18:30)
[2021-04-04] MEDS: ATORVASTATIN 40 MG TAB PO SCH (20:54)
[2021-04-05 00:56] LABS: Partial Thromboplastin Ratio 1.5; Partial Thromboplastin Time 38.9 Seconds (21.0-31.0)
[2021-04-05] MEDS: HEPARIN SODIUM/DEXTROSE 25,000 UNITS/500 ML BAG IV SCH ×2 (01:01→23:57)
[2021-04-05] MEDS ORDERED: HEPARIN STOP ORDER ONE (03:30)
[2021-04-05] MEDS: LEVOTHYROXINE SODIUM 112 MCG TABLET PO SCH (05:28)
--- NOTE | 2021-04-05 06:42 | Electrocardiogram Report ---
Test Reason : Blood Pressure : / mmHG Vent. Rate : 127 BPM Atrial Rate : 144 BPM P-R Int : 000 ms QRS Dur : 084 ms QT Int : 354 ms P-R-T Axes : 000 017 071 degrees QTc Int : 514 ms Poor data quality, interpretation may be adversely affected Atrial fibrillation with rapid ventricular response Prolonged QT Abnormal ECG When compared with ECG of 03-APR-2021 14:31, No significant change Confirmed by Darryl Bermeo ([id number]) on 04/05/2021 6:41:48 AM Referred By: Paul Vazquez Confirmed By:Darryl Bermeo
[2021-04-05 07:26] LABS: Hematocrit (blood only) 38.3 % (37-47); Hemoglobin 12.1 g/dL (12.0-16.0); Mean Corpuscular Hemoglobin 27.8 pg (25-34); Mean Corpuscular Hgb Conc 31.6 g/dL (32-36); Mean Platelet Volume 10.8 fL (7.4-10.4); Platelet Count 251 K/uL (130-400); RDW Coefficient of Variation 15.2 % (11.5-14.5); RDW Standard Deviation 48.6 fL (36.4-46.3); Red Blood Count 4.35 M/uL (4.2-5.4); White Blood Count 5.91 K/uL (4.8-10.8)
[2021-04-05 07:49] LABS: BUN Creatinine Ratio 17.8 (10-20); Calcium 9.3 mg/dl (8.5-10.1); Creatinine Clr Calc Pharmacy 86.9 ml/min; Est GFR (African American) 101.6 ml/min; Est GFR (Non-African American) 87.7 ml/min; Potassium 4.1 mmol/L (3.5-5.1)
[2021-04-05 08:15] LABS: Partial Thromboplastin Time 25.8 Seconds (21.0-31.0); Prothrombin Time 10.3 Seconds (9.0-12.0)
[2021-04-05] MEDS: MAGNESIUM OXIDE 400 MG TAB PO SCH ×2 (08:51→20:17)
[2021-04-05] MEDS: PANTOprazole 40 MG TAB PO SCH (08:51)
[2021-04-05] MEDS: METOPROLOL TARTRATE 50 MG TAB PO SCH ×4 (08:52→20:17)
[2021-04-05] MEDS: INSULIN ASPART PER UNIT SC SCH ×4 (08:55→20:48)
[2021-04-05] MEDS: amLODIPine BESYLATE 5 MG TAB PO SCH (08:55)
--- NOTE | 2021-04-05 09:01 | Anesthesiology Consultation ---
Date of Service April 05, 2021 Assessment & Plan (1) Encounter for pre-operative examination: Chart Review Chart Review: Acceptable Risk for Surgery and Patient NOT seen in Pre Admission Testing Consults Requested none Additional Notes Patient presented with pulmonary nodules as well as afib with RVR, cardiology consulted and rate controlled overnight, patient appropriate pending clinical status/rate control prior to procedure. History Surgery Operation Date: 04/05/21 11:00 Proposed Procedures p Endobronchial Ultrasound - Zane Medel MD Height/Weight Height: 5 ft 2.5 in Weight: 97.5 kg Allergies Allergy/AdvReac Type Severity Reaction Status Date / Time hydrocodone Allergy Intermediate RASH Verified 04/03/21 16:59 Sulfa (Sulfonamide Allergy Mild GI SYMPTOMS Verified 04/03/21 16:59 Antibiotics) Medications Home Medications Medication Instructions Recorded Confirmed Last Taken amlodipine 5 mg tablet 5 mg PO DAILY 04/03/21 04/03/21 04/03/21 ascorbic acid (vitamin C) 500 mg 0 mg PO DAILY 04/03/21 04/03/21 04/03/21 tablet (Vitamin C) aspirin 81 mg tablet,delayed 81 mg PO DAILY 04/03/21 04/03/21 04/03/21 release atorvastatin 40 mg tablet 40 mg PO HS 04/03/21 04/03/21 04/02/21 cholecalciferol (vitamin D3) 25 0 mcg PO DAILY 04/03/21 04/03/21 04/03/21 mcg (1,000 unit) capsule (Vitamin D3) glucosamine sulf dipot 1 cap PO BID 04/03/21 04/03/21 04/03/21 08:00 chlr,msm,chond 550 mg-C 30 mg-jose 1 mg capsule (Glucosamine Chondroitin) levothyroxine 100 mcg tablet 100 mcg PO DAILYBB 04/03/21 04/03/21 04/03/21 levothyroxine 25 mcg tablet 25 mcg PO DAILYBB 04/03/21 04/03/21 04/03/21 metformin 500 mg tablet,extended 500 mg PO BIDM 04/03/21 04/03/21 04/03/21 08:00 release 24 hr multivitamin 1 tab PO DAILY 04/03/21 04/03/21 04/03/21 omega-3 fatty acids 1,000 mg 1,000 mg PO DAILY 04/03/21 04/03/21 04/03/21 capsule omeprazole 20 mg capsule,delayed 20 mg PO DAILY 04/03/21 04/03/21 04/03/21 release turmeric 400 mg capsule 400 mg PO DAILY 04/03/21 04/03/21 04/03/21 vitamin E 400 unit capsule 0 unit PO DAILY 04/03/21 04/03/21 04/03/21 zinc 50 mg tablet 50 mg PO DAILY 04/03/21 04/03/21 04/03/21 Active Medications Generic Name Dose Route Start Last Admin Trade Name Surendra PRN Reason Stop Dose Admin Amlodipine Besylate 5 mg 04/04/21 09:00 04/05/21 08:55 Amlodipine Besylate 5 Mg Tab PO 05/04/21 08:59 Not Given DAILY CANDELARIA Atorvastatin Calcium 40 mg 04/03/21 21:00 04/04/21 20:54 Atorvastatin 40 Mg Tab PO 05/03/21 20:59 40 mg HS CANDELARIA Administration Diltiazem HCl 125 mg/ Dextrose 125 mls @ 5 mls/hr 04/03/21 17:45 04/05/21 07:05 IV 05/03/21 17:44 5 mg/hr .Q24H CANDELARIA 5 mls/hr Titration Protocol 5 MG/HR Heparin Sodium/Dextrose 25,000 units in 500 mls @ 0 mls/hr 04/04/21 09:15 04/05/21 04:01 Heparin Sodium/Dextrose IV 05/04/21 09:14 0 units/hr .Q0M CANDELARIA 0 mls/hr Titration Protocol 0 UNITS/HR Insulin Aspart 0 units 04/03/21 21:00 04/05/21 08:55 Insulin Aspart Per Unit SC 05/03/21 20:59 Not Given ACHS CANDELARIA Levothyroxine Sodium 112 mcg 04/04/21 06:30 04/05/21 05:28 Levothyroxine Sodium 112 Mcg Tablet PO 05/04/21 06:29 112 mcg DAILYBB CANDELARIA Administration Magnesium Oxide 400 mg 04/04/21 09:00 04/05/21 08:51 Magnesium Oxide 400 Mg Tab PO 05/04/21 08:59 400 mg BID CANDELARIA Administration Metoprolol Tartrate 50 mg 04/04/21 13:00 04/05/21 08:52 Metoprolol Tartrate 50 Mg Tab PO 05/04/21 12:59 50 mg QID CANDELARIA Administration Pantoprazole Sodium 40 mg 04/04/21 09:00 04/05/21 08:51 Pantoprazole 40 Mg Tab PO 05/04/21 08:59 40 mg DAILY CANDELARIA Administration Past Medical History Medical History Abnormal CT scan, chest Calculus of ureter (05/21/12) Discectomy for intervertebral herniated disc, nucleus pulposus (05/21/12) History of COVID-19 HLD (hyperlipidemia) Hypertension Hypothyroid Long COVID Multiple pulmonary nodules determined by computed tomography of lung VANESA on CPAP Restless legs (05/21/12) Subarachnoid hemorrhage determined to be benign, spontaneous, 2012, seen by Dr. Montez, f/u MRI showed resolution of bleed T2DM (type 2 diabetes mellitus) Past Family History Family History Father , 52 Myocardial infarction Brother Coronary heart disease Sister , 53 Myocardial infarction Mother Cancer Past Surgical History Surgical History History of colonoscopy History of laminectomy History of tubal ligation Social History Smoking Status: Never smoker Do You Dip or Chew Tobacco: No Hx Alcohol Use: No Hx Substance Use: No Physical Exam Vital Signs Last Vital Signs Temp 97.9 F 04/05/21 08:34 Pulse 107 H 04/05/21 08:34 Resp 18 04/05/21 08:34 BP 106/67 04/05/21 08:34 Pulse Ox 96 04/05/21 08:34 Testing Laboratory Results 04/05/21 07:05 04/05/21 07:05 PT 10.3 Seconds (9.0-12.0) 04/05/21 07:05 INR 1.0 (0.9-1.1) 04/05/21 07:05 APTT 25.8 Seconds (21.0-31.0) 04/05/21 07:05 Hemoglobin A1c 6.8 % (4.5-5.6) H 04/04/21 05:28 04/05/21 07:09 POC Glucose 118 H Electrocardiogram Date: 04/05/21 Findings: + AFIB @ (with PVCs, rate controlled) Echocardiogram Date: 04/04/21 EF: 55 LV Function: normal Other Findings: + LVH (mild) Valvular Disease: + AI (mild) and + MR (mild)
[2021-04-05] MEDS: dilTIAZem HCL 125 MG in DEXTROSE 5% 100 ML IV SCH ×2 (11:24→15:43)
[2021-04-05] MEDS ORDERED: fentaNYL citrate 100 MCG/2 ML VIAL ONE (12:22)
[2021-04-05] MEDS ORDERED: LIDOCAINE 2% 2 ML VIAL/AMP(20MG/ML) INFIL ONE (12:22)
[2021-04-05] MEDS ORDERED: PROPOFOL IV EMULSION 10 MG/ML 20 ML VIAL IV ONE (12:22)
[2021-04-05] MEDS ORDERED: fentaNYL citrate 100 MCG/2 ML VIAL IV PRN (12:43)
[2021-04-05] MEDS ORDERED: ONDANSETRON INJ 2 MG/ML 2 ML VIAL IV PRN (12:43)
[2021-04-05] MEDS ORDERED: ATROPINE SULFATE 0.1 MG/ML 10ML SYR IV PRN (12:43)
[2021-04-05] MEDS ORDERED: MIDAZOLAM HCL 1 MG/ML 2ML VIAL ONE (12:47)
--- NOTE | 2021-04-05 12:47 | History & Physical Bridge Note ---
Date of Service April 05, 2021 History & Physical Bridge Note I have examined the patient, reviewed the History & Physical and in the interval since the performance of the History & Physical I have noted the following changes of clinical significance: no changes noted
--- NOTE | 2021-04-05 13:00 | Cardiology Progress Note ---
Date of Service April 05, 2021 Assessment & Plan (1) Atrial fibrillation with rapid ventricular response: Plan: Atrial fibrillation with rapid ventricular response: [id number] score of at least 3 for risk factors of female, h/o HTN, DM, and likely age as 65 years old is very close to 67 years old. - Rates trending toward improvement with titration of metoprolol tartrate to 50 milligrams four times daily on 04/04/2021, and also received 1 dose of IV digoxin. Remains on IV diltiazem however dose has been reduced to 5 milligrams/hour. Patient is hemodynamically stable from my perspective to undergo bronchoscopy. Would continue IV diltiazem, and discontinue the medication acutely if there are concerns with regards to low blood pressure or low heart rates just prior to or during the procedure. Heparin has been held appropriately. Pulmonary Nodules: -CT Abd and pelvis obtained by hospitalist service, With no evidence of metastatic disease. - Agree with pulmonary concerns with regards to his differential diagnosis of the abnormal CT with regards to postinflammatory changes from pneumonia, sarcoidosis, atypical CHF, or malignancy. Family History of Premature CAD in father, sister: -Continue atorvastatin Admission and Anticipated Discharge Date Admission Date: April 03, 2021 Subjective Patient seen in follow-up. Subjectively feels improved. She notes her cough is less frequent, less severe. Telemetry reveals ongoing atrial fibrillation. Rates somewhat improved, with ventricular rate in the 100-110 beats per minute during waking hours, and 80-90 beats per minute overnight. Physical Exam Constitutional: + obese Cardiovascular: Rate/Rhythm: + tachycardic and + irregularly irregular Heart Sounds: no murmur Extremities: no edema Gastrointestinal (Abdomen): normal bowel sounds, soft, nontender, no hepatosplenomegaly Neurologic: PERRL, EOMI, accommodation nl, no face palsy, no dysarthria Results & Data ([facility]) Vital Signs (Past 12 Hours) Vital Signs Temp Pulse Pulse Pulse Resp BP BP 04/05/21 12:43 84 04/05/21 12:29 36.8 C 106 H 20 117/93 04/05/21 10:42 36.9 C 78 18 116/80 04/05/21 08:34 36.6 C 107 H 18 106/67 04/05/21 08:05 36.5 C 88 18 116/74 04/05/21 05:55 36.8 C 99 H 18 106/70 Pulse Ox 04/05/21 12:43 04/05/21 12:29 100 04/05/21 10:42 97 04/05/21 08:34 96 04/05/21 08:05 100 04/05/21 05:55 97
--- NOTE | 2021-04-05 13:01 | Hospitalist Progress Note ---
Date of Service April 05, 2021 Assessment & Plan (1) Atrial fibrillation with rapid ventricular response: Plan: This is a 65-year-old female who has significant past medical history of HTN, HLD, T2DM, VANESA on CPAP, history of a subarachnoid hemorrhage in 2013 spont aneous, hypothyroidism, RLS, obesity who presents to ED at the referral of PCP due to being found in atrial fibrillation in clinic. Atrial fibrillation RVR Recent history of COVID-19, diagnosed 03/08/2021 Echocardiogram EF 55% Start diltiazem drip for rate control [id number] (F, HTN, DM) Started Eliquis 5mg BID yesterday but with multiple lung nodules seen--> will switch her to heparin drip for now in the event she gets biopsy CTA chest negative for PE but shows multiple non calcified lung nodules Cardiology on case Multiple Lung nodules Mediastinal lymphadenopathy Concerning for underlying malignancy Will obtain CT abdomen/pelvis with contrast to evaluate further Patient reports being up to date with her mammogram and colonoscopy Pulmonology evaluation T2DM last a1c 6.6 hold metformin a1c in a.m. monitor FBS place on novolog SS HTN Continue Norvasc HLD Continue statin VANESA CPAP at HS Hypothyroidism Levothyroxine recently increased from 100 mcg 125 mcg on 02/28/2021 secondary to TSH 5.81, normal free T4 TSH here 0.18 Reduce levothyroxine to 112 mcg Repeat in 4 weeks Dispo: PCU FULL CODE PCP: George Labs checked DVT prophylaxis- heparin drip ROS-No Headache, No Visual Changes, No Nausea, No Vomiting, No Fever, No Chills, No Neck Pain or Stiffness, No Chest Pain, No Palpitations, No SOB, No BAH, No Cough, No Sputum, No Wheezing, No Abdominal Pain, No Diarrhea, No Hematemesis, No Hemoptysis, No Unexpected Weight Loss, No Flank pain, No Melena, No Hematochezia, No Frequency, No Urgency, No Burning, No Hematuria, No Rashes, No Diaphoresis. Appetite is Normal Physical Exam Gen-AAO x 3, NAD, Afebrile, Obese Head-NCAT, EOMI, PERRLA, Anicteric Sclera, No Posterior Pharyngeal Erythema Neck-Supple, No JVD, No Thyromegaly, No Masses, No LAD, No Bruits Lungs-Clear to Auscultation Bilaterally, No Rales, No Rhonchi, No Wheezing, No Crepitus Chest-Irreg/Irreg No S4, +S1, +S2, No S3, No Murmurs, No Rubs, No Gallops, +Ectopy Abdomen-Soft, Bowel Sounds Present, Non Tender, Non Distended, No Hepatomegaly, No Splenomegaly, No Palpable Masses, No Rebound, No Rigidity, No Guarding Musculoskeletal-Full Range of Motion Bilaterally, No CVAT Extremities-No Cyanosis, No Clubbing, No Edema Nuero-Cranial Nerves II-XII grossly intact, Motor WNL, DTRs WNL, Strength WNL, Non Focal Psych-Normal Mood Admission and Anticipated Discharge Date Admission Date: April 03, 2021 Subjective Patient seen, Still in Afib, Cardizem drip Results & Data Results & Data ([facility]) Vital Signs (Past 12 Hours) Vital Signs Temp Pulse Pulse Pulse Resp BP BP 04/05/21 12:43 84 04/05/21 12:29 36.8 C 106 H 20 117/93 04/05/21 10:42 36.9 C 78 18 116/80 04/05/21 08:34 36.6 C 107 H 18 106/67 04/05/21 08:05 36.5 C 88 18 116/74 04/05/21 05:55 36.8 C 99 H 18 106/70 Pulse Ox 04/05/21 12:43 04/05/21 12:29 100 04/05/21 10:42 97 04/05/21 08:34 96 04/05/21 08:05 100 04/05/21 05:55 97
[2021-04-05] MEDS ORDERED: ROCURONIUM BROMIDE 10 MG/ML 5 ML VIAL IV ONE (13:05)
[2021-04-05] MEDS ORDERED: SUGAMMADEX SODIUM 200 MG/2 ML VIAL IV ONE (13:58)
[2021-04-05] MEDS ORDERED: DEXAMETHASONE SOD INJ 4 MG/ML VIAL ONE (14:08)
[2021-04-05] MEDS ORDERED: ONDANSETRON INJ 2 MG/ML 2 ML VIAL ONE (14:08)
--- NOTE | 2021-04-05 14:58 | Procedure Note ---
Procedure Note: Bronchoscopy Procedure PREOPERATIVE DIAGNOSIS: Mediastinal lymphadenopathy and bilateral nodules POSTOPERATIVE DIAGNOSIS: Same as above PROCEDURE PERFORMED: Flexible fiberoptic bronchoscopy with BAL from the lingula and EBUS of station 7, 11 R, 10 L and 4R COMPLICATIONS: None. INDICATION: Evaluate for inflammatory/malignant etiologies PROCEDURE: Informed consent was obtained from the patient. The patient was taken to the OR and intubated by the anesthesia staff. Please see their notes with regards to sedation and general anesthesia. The diagnostic bronchoscope was inserted via the endotracheal tube and a bilateral tracheobronchial tree inspection was performed. Trachea and kika appeared normal. No obvious lesions were seen. Minimal thin secretions noted bilaterally. The scope was wedged into the lingula and 60 cc of saline was instilled x2 into the lingula in sequential aliquots. These were aspirated back. No alveolar hemorrhage was noted. Approximately 30 mL of fluid was aspirated back. The scope was withdrawn. The EBUS scope was inserted and a survey was performed of the hilar and mediastinal lymph nodes. FNA biopsies were completed of station 7, 11 R, 10 L and 4R. Lymphocyte tissue was obtained from the biopsy sites. Bleeding was minimal. The scope was ultimately withdrawn and the patient tolerated the procedure well. The patient was extubated per the anesthesia protocol. Recommendations: Follow cell counts, cytology and cultures from the BAL fluid. Follow pathology results from the lymph node biopsies.
--- NOTE | 2021-04-05 15:10 | Anesthesiology Progress Note ---
Date of Service April 05, 2021 Anesthesia Post Procedure Vital Signs Vital Signs: Temp Pulse Pulse Pulse Resp BP BP 04/05/21 14:55 109 H 18 117/61 04/05/21 14:45 94 H 18 102/70 04/05/21 14:35 104 H 18 113/90 04/05/21 14:29 36.6 C 137 H 18 116/87 04/05/21 12:43 84 04/05/21 12:29 36.8 C 106 H 20 117/93 04/05/21 10:42 36.9 C 78 18 116/80 04/05/21 08:34 36.6 C 107 H 18 106/67 04/05/21 08:05 36.5 C 88 18 116/74 04/05/21 05:55 36.8 C 99 H 18 106/70 04/04/21 23:05 36.5 C 73 18 100/64 04/04/21 21:00 64 16 04/04/21 19:37 36.6 C 93 H 18 108/73 04/04/21 15:58 36.7 C 93 H 20 113/72 04/04/21 15:16 104 H Pulse Ox 04/05/21 14:55 96 04/05/21 14:45 96 04/05/21 14:35 100 04/05/21 14:29 98 04/05/21 12:43 04/05/21 12:29 100 04/05/21 10:42 97 04/05/21 08:34 96 04/05/21 08:05 100 04/05/21 05:55 97 04/04/21 23:05 94 04/04/21 21:00 95 04/04/21 19:37 95 04/04/21 15:58 95 04/04/21 15:16 Transfer of Care Handoff Completed per policy Notes Mental Status: alert / awake / arousable Patient Amnestic to Procedure: Yes Nausea / Vomiting: adequately controlled Pain: adequately controlled Airway Patency, RR, SpO2: stable & adequate BP & HR: stable & adequate Hydration State: stable & adequate Anesthetic Complications: no major complications apparent
--- NOTE | 2021-04-05 17:05 | Pulmonology Progress Note ---
Date of Service April 05, 2021 Assessment & Plan (1) Abnormal CT scan, chest: (2) Multiple pulmonary nodules determined by computed tomography of lung: (3) Long COVID: (4) Atrial fibrillation with rapid ventricular response: Plan: 65-year-old female with a history of obesity, VANESA on CPAP, diabetes mellitus and dyslipidemia found to have atrial fibrillation during hospital admission. Incidentally noted to have groundglass opacities on her CT chest with small pulmonary nodules and mediastinal lymphadenopathy. Differential for the CT chest findings is broad including malignancy, benign etiologies such as sarcoidosis, other inflammatory lung conditions such as hypersensitivity pneumonitis and possibly a post COVID-19 inflammatory process. The findings may also be related to atypical pulmonary edema. Often times mediastinal adenopathy could be seen with acute congestive heart failure such as in the setting of atrial fibrillation with rapid ventricular response. She is status post EBUS bronchoscopy performed by ks 04/05/2021. Benign pathology was seen on rapid onsite evaluation. Will await final pathology slides and cultures from the bronchoscopy. She will need a repeat CT chest in 4 to 6 weeks. Can restart heparin drip 6 hours after the procedure as long as the patient does not have any evidence of hemoptysis. Thank you for the consult. Pulmonary continue to follow with you. Admission and Anticipated Discharge Date Admission Date: April 03, 2021 Subjective Patient seen and examined today. Remains on diltiazem drip. Denies any significant dyspnea or chest pain. Review of Systems Review of Systems: All systems reviewed & are unremarkable except as noted in HPI & below Physical Exam Physical Exam: Constitutional: Obese appearing female no apparent distress sitting in bed. Eyes: Pupils are equal round and reactive to light. Conjunctivae are normal. Anicteric sclera. Ears nose, mouth and throat: No deformities. Neck: Trachea is midline. Visual inspection is normal. Respiratory: Clear to auscultation bilaterally. No use of accessory muscles. No significant clubbing noted. Cardiovascular: Regular rate and rhythm. No murmurs. No edema. Gastrointestinal: Normal bowel sounds, soft, nontender and nondistended. No hepatosplenomegaly noted. Musculoskeletal: No cyanosis. Patient is able to move all extremities. Skin: No rashes, warm dry and intact. Neurologic: No obvious focal neurological deficits seen. Psychiatric: Alert and oriented x3 with a euthymic affect. Results & Data Results & Data ([facility]) Vital Signs (Past 12 Hours) Vital Signs Temp Pulse Pulse Pulse Resp BP BP 04/05/21 14:55 109 H 18 117/61 04/05/21 14:45 94 H 18 102/70 04/05/21 14:35 104 H 18 113/90 04/05/21 14:29 36.6 C 137 H 18 116/87 04/05/21 12:43 84 04/05/21 12:29 36.8 C 106 H 20 117/93 04/05/21 10:42 36.9 C 78 18 116/80 04/05/21 08:34 36.6 C 107 H 18 106/67 04/05/21 08:05 36.5 C 88 18 116/74 04/05/21 05:55 36.8 C 99 H 18 106/70 Pulse Ox 04/05/21 14:55 96 04/05/21 14:45 96 04/05/21 14:35 100 04/05/21 14:29 98 04/05/21 12:43 04/05/21 12:29 100 04/05/21 10:42 97 04/05/21 08:34 96 04/05/21 08:05 100 04/05/21 05:55 97 PG Care Time/CCT Total # of Minutes Spent Total Time Spent with Patient: Total time spent is greater than 50% in coordination of care (as documented) at patient's floor/unit and/or counseling patient: Coding Level of Care Code 33164 Subseq Hosp Care Lvl [address] scan, chest R93.89 Multiple pulmonary nodules determined by computed tomography of lung R91.8 Long COVID U09.9 Atrial fibrillation with rapid ventricular response I48.91
[2021-04-05 18:25] LABS: Eosinophil Body Fluid Man 0 %; Fluid Mono/Macrophage 39 %; Lymphocyte Body Fluid Man 60 %; Neutrophil Body Fluid Man 1 %
[2021-04-05] MEDS: ATORVASTATIN 40 MG TAB PO SCH (20:17)
[2021-04-06 03:59] LABS: Hematocrit (blood only) 38.2 % (37-47); Hemoglobin 12.3 g/dL (12.0-16.0); Mean Corpuscular Hgb Conc 32.2 g/dL (32-36); Mean Platelet Volume 10.2 fL (7.4-10.4); Platelet Count 251 K/uL (130-400); RDW Coefficient of Variation 14.7 % (11.5-14.5); RDW Standard Deviation 46.8 fL (36.4-46.3); Red Blood Count 4.39 M/uL (4.2-5.4); White Blood Count 7.21 K/uL (4.8-10.8)
[2021-04-06 04:10] LABS: Partial Thromboplastin Ratio 1.3; Partial Thromboplastin Time 34.3 Seconds (21.0-31.0)
[2021-04-06 04:17] LABS: Calcium 9.5 mg/dl (8.5-10.1); Creatinine Clr Calc Pharmacy 85.7 ml/min; Est GFR (African American) 99.9 ml/min; Est GFR (Non-African American) 86.2 ml/min; Potassium 4.4 mmol/L (3.5-5.1)
[2021-04-06] MEDS ORDERED: Heparin IV Adult Wt-Based Standard WITH Bolus Protocol IV STA (04:38)
[2021-04-06] MEDS ORDERED: HEPARIN SOD (PORCINE) 1000 UNIT/ML IV ONE ×2 (04:57→05:00)
[2021-04-06] MEDS ORDERED: HEPARIN SODIUM/DEXTROSE 25,000 UNITS/500 ML BAG IV SCH (05:00)
[2021-04-06] MEDS: LEVOTHYROXINE SODIUM 112 MCG TABLET PO SCH (06:19)
--- NOTE | 2021-04-06 06:41 | Electrocardiogram Report ---
Test Reason : Blood Pressure : / mmHG Vent. Rate : 094 BPM Atrial Rate : 133 BPM P-R Int : 000 ms QRS Dur : 088 ms QT Int : 364 ms P-R-T Axes : 000 046 051 degrees QTc Int : 456 ms Atrial fibrillation with premature ventricular or aberrantly conducted complexes Abnormal ECG When compared with ECG of 04-APR-2021 05:37, No significant change was found Confirmed by Darryl Bermeo ([id number]) on 04/06/2021 6:41:05 AM Referred By: Paul Vazquez Confirmed By:Darryl Bermeo
[2021-04-06] MEDS: PANTOprazole 40 MG TAB PO SCH (08:44)
[2021-04-06] MEDS: amLODIPine BESYLATE 5 MG TAB PO SCH (08:44)
[2021-04-06] MEDS: METOPROLOL TARTRATE 50 MG TAB PO SCH (08:45)
[2021-04-06] MEDS: MAGNESIUM OXIDE 400 MG TAB PO SCH ×2 (08:45→19:49)
[2021-04-06] MEDS: INSULIN ASPART PER UNIT SC SCH ×4 (09:12→22:42)
[2021-04-06] MEDS ORDERED: METOPROLOL TARTRATE 50 MG TAB PO ONE (10:15)
[2021-04-06] MEDS: APIXABAN 5 MG TABLET PO SCH ×2 (10:46→19:49)
--- NOTE | 2021-04-06 11:38 | Pulmonology Progress Note ---
Date of Service April 06, 2021 Assessment & Plan (1) Abnormal CT scan, chest: (2) Multiple pulmonary nodules determined by computed tomography of lung: (3) Long COVID: (4) Atrial fibrillation with rapid ventricular response: (5) Cough: Plan: 65-year-old female with a history of obesity, VANESA on CPAP, diabetes mellitus and dyslipidemia found to have atrial fibrillation during hospital admission. Incidentally noted to have groundglass opacities on her CT chest with small pulmonary nodules and mediastinal lymphadenopathy. Await biopsy results from EBUS. Preliminary pathology appeared to be benign. Will need a follow-up CT in 4-5 to follow up on nodules and lymph nodes. We will start the patient on prednisone for 5 days to treat her chronic cough and groundglass opacities. Also started on Breo Ellipta. Thank you for the consult. Pulmonary continue to follow with you. Admission and Anticipated Discharge Date Admission Date: April 03, 2021 Subjective Patient seen and examined. She has a cough post procedure. She does note that she had a cough for the past month or so. Denies any chest pain. No shortness of breath. Tolerating her diet well. No hemoptysis. Review of Systems Review of Systems: All systems reviewed & are unremarkable except as noted in HPI & below Physical Exam Physical Exam: Constitutional: Obese appearing female no apparent distress sitting in bed. Eyes: Pupils are equal round and reactive to light. Conjunctivae are normal. Anicteric sclera. Ears nose, mouth and throat: No deformities. Neck: Trachea is midline. Visual inspection is normal. Respiratory: Clear to auscultation bilaterally. No use of accessory muscles. No significant clubbing noted. Cardiovascular: Regular rate and rhythm. No murmurs. No edema. Gastrointestinal: Normal bowel sounds, soft, nontender and nondistended. Musculoskeletal: No cyanosis. Patient is able to move all extremities. Skin: No rashes, warm dry and intact. Neurologic: No obvious focal neurological deficits seen. Psychiatric: Alert and oriented x3 with a euthymic affect. Results & Data Results & Data ([facility]) Vital Signs (Past 12 Hours) Vital Signs Temp Pulse Resp BP Pulse Ox 04/06/21 11:32 36.8 C 99 H 18 112/73 94 04/06/21 10:45 36.9 C 106 H 18 132/78 97 04/06/21 08:13 36.5 C 139 H 20 126/81 97 04/06/21 04:23 36.8 C 106 H 18 118/78 97 04/05/21 23:39 36.6 C 87 20 105/65 96 PG Care Time/CCT Total # of Minutes Spent Total Time Spent with Patient: Total time spent is greater than 50% in coordination of care (as documented) at patient's floor/unit and/or counseling patient: Coding Level of Care Code 78633 Subseq Hosp Care Lvl [address] scan, chest R93.89 Multiple pulmonary nodules determined by computed tomography of lung R91.8 Long COVID U09.9 Atrial fibrillation with rapid ventricular response I48.91 Cough R05.9
--- NOTE | 2021-04-06 12:47 | Cardiology Progress Note ---
Date of Service April 06, 2021 Assessment & Plan (1) Atrial fibrillation with rapid ventricular response: Plan: Atrial fibrillation with rapid ventricular response: [id number] score of at least 3 for risk factors of female, h/o HTN, DM, and likely age as 65 years old is very close to 67 years old. - Discontinue IV diltiazem. Titrate metoprolol tartrate to 100 milligrams p.o. twice daily. - Discontinue heparin infusion, transition to Eliquis 5 milligrams twice daily. - Discussed options with regards to ongoing rate control and anticoagulation, or proceeding with transesophageal echocardiogram guided direct current cardioversion. If patient's rates are relatively well controlled and her symptoms are well controlled on metoprolol therapy while walking in the hallway later this afternoon, will consider discharge, with close outpatient cardiology follow-up, and if necessary return for direct current cardioversion after an interval of uninterrupted therapeutic anticoagulation of 3 to 4 weeks. Pulmonary Nodules: -CT Abd and pelvis obtained by hospitalist service, With no evidence of metastatic disease. - preliminary results of bronchoscopy reassuring. Plan for repeat CT at an interval of 4 to 6 weeks as per advice of pulmonary. . Family History of Premature CAD in father, sister: -Continue atorvastatin Admission and Anticipated Discharge Date Admission Date: April 03, 2021 Subjective Patient seen in follow-up. She remains in atrial fibrillation. She looks improved, and states her cough and generalized dyspnea have improved. She is already perform some walks in the hallway. At rest, ventricular rates are down to the 90 to 110 beat per minute range on diltiazem 5 milligrams/hour. While walking in going to the restroom, ventricular rates were still to 130 beats per minute. Heparin infusing at the time of my assessment. Physical Exam Constitutional: + obese Cardiovascular: Rate/Rhythm: + tachycardic and + irregularly irregular Heart Sounds: no murmur Extremities: no edema Gastrointestinal (Abdomen): normal bowel sounds, soft, nontender, no hepatosplenomegaly Neurologic: PERRL, EOMI, accommodation nl, no face palsy, no dysarthria Results & Data ([facility]) Vital Signs (Past 12 Hours) Vital Signs Temp Pulse Resp BP Pulse Ox 04/06/21 11:32 36.8 C 99 H 18 112/73 94 04/06/21 10:45 36.9 C 106 H 18 132/78 97 04/06/21 08:13 36.5 C 139 H 20 126/81 97 04/06/21 04:23 36.8 C 106 H 18 118/78 97 Laboratory Results Coagulation 04/06/21 Range/Units 03:49 APTT 34.3 H (21.0-31.0) Seconds CBC 04/06/21 Range/Units 03:49 WBC 7.21 (4.8-10.8) K/uL RBC 4.39 (4.2-5.4) M/uL Hgb 12.3 (12.0-16.0) g/dL Hct 38.2 (37-47) % Plt Count 251 (130-400) K/uL Comprehensive Metabolic Panel 04/06/21 Range/Units 03:49 Sodium 134 L (136-145) mmol/L Potassium 4.4 (3.5-5.1) mmol/L Chloride 104 (98-107) mmol/L Carbon Dioxide 23 (21-32) mmol/L BUN 17 (6-23) mg/dl Creatinine 0.74 (0.6-1.2) mg/dl Glucose 187 H (70-99(Fasting)) mg/dl Calcium 9.5 (8.5-10.1) mg/dl Intake and Output 04/05/21 04/06/21 04/06/21 22:59 06:59 14:59 Intake Total 0 / 204.35 117.6 / 204.35 236.1 / 236.1 Balance 0 / 204.35 117.6 / 204.35 236.1 / 236.1 Intake: IV 0 / 204.35 117.6 / 204.35 236.1 / 236.1 Heparin Sodium/Dextrose 25,000 0 / 117.6 117.6 / 117.6 141.6 / 141.6 units In 500 ml @ 1,200 UNITS/ HR 24 mls/hr IV .[id number] [facility] Rx #:[id number] dilTIAZem HCL 125 mg In 94.5 / 94.5 Dextrose 5% 100 ml @ 5 MG/HR 5 mls/hr IV .Q24H [facility] Rx#: [id number] Other: # Unmeasured Voids 1 1 Weight 97.7 kg Weight Measurement Method Built in [facility]
[2021-04-06] MEDS: predniSONE 20 MG TAB PO SCH (12:58)
--- NOTE | 2021-04-06 13:12 | Hospitalist Progress Note ---
Date of Service April 06, 2021 Assessment & Plan (1) Atrial fibrillation with rapid ventricular response: Plan: This is a 65-year-old female who has significant past medical history of HTN, HLD, T2DM, VANESA on CPAP, history of a subarachnoid hemorrhage in 2012 spon taneous, hypothyroidism, RLS, obesity who presents to ED at the referral of PCP due to being found in atrial fibrillation in clinic. Atrial fibrillation RVR Recent history of COVID-19, diagnosed 03/08/2021 Echocardiogram EF 55% Diltiazem drip for rate control, DC IV Heparin, Eliquis [id number] 3 (F, HTN, DM) CTA chest negative for PE but shows multiple non calcified lung nodules Cardiology on case Multiple Lung nodules Mediastinal lymphadenopathy Concerning for underlying malignancy Will obtain CT abdomen/pelvis with contrast to evaluate further Patient reports being up to date with her mammogram and colonoscopy Pulmonology on case T2DM last a1c 6.6 hold metformin a1c in a.m. monitor FBS place on novolog SS HTN Continue Norvasc HLD Continue statin VANESA CPAP at HS Hypothyroidism Levothyroxine recently increased from 100 mcg 125 mcg on 02/28/2021 secondary to TSH 5.81, normal free T4 TSH here 0.18 Reduce levothyroxine to 112 mcg Repeat in 4 weeks Dispo: PCU FULL CODE PCP: George Labs checked DVT prophylaxis- heparin drip ROS-No Headache, No Visual Changes, No Nausea, No Vomiting, No Fever, No Chills, No Neck Pain or Stiffness, No Chest Pain, No Palpitations, No SOB, No BAH, No Cough, No Sputum, No Wheezing, No Abdominal Pain, No Diarrhea, No Hematemesis, No Hemoptysis, No Unexpected Weight Loss, No Flank pain, No Melena, No Hematochezia, No Frequency, No Urgency, No Burning, No Hematuria, No Rashes, No Diaphoresis. Appetite is Normal Physical Exam Gen-AAO x 3, NAD, Afebrile, Obese Head-NCAT, EOMI, PERRLA, Anicteric Sclera, No Posterior Pharyngeal Erythema Neck-Supple, No JVD, No Thyromegaly, No Masses, No LAD, No Bruits Lungs-Clear to Auscultation Bilaterally, No Rales, No Rhonchi, No Wheezing, No Crepitus Chest-Irreg/Irreg No S4, +S1, +S2, No S3, No Murmurs, No Rubs, No Gallops, +Ectopy Abdomen-Soft, Bowel Sounds Present, Non Tender, Non Distended, No Hepatomegaly, No Splenomegaly, No Palpable Masses, No Rebound, No Rigidity, No Guarding Musculoskeletal-Full Range of Motion Bilaterally, No CVAT Extremities-No Cyanosis, No Clubbing, No Edema Nuero-Cranial Nerves II-XII grossly intact, Motor WNL, DTRs WNL, Strength WNL, Non Focal Psych-Normal Mood Admission and Anticipated Discharge Date Admission Date: April 03, 2021 Subjective Patient seen and feels great Results & Data Results & Data ([facility]) Vital Signs (Past 12 Hours) Vital Signs Temp Pulse Resp BP Pulse Ox 04/06/21 11:32 36.8 C 99 H 18 112/73 94 04/06/21 10:45 36.9 C 106 H 18 132/78 97 04/06/21 08:13 36.5 C 139 H 20 126/81 97 04/06/21 04:23 36.8 C 106 H 18 118/78 97
[2021-04-06] MEDS: FLUTICASONE/VILANTEROL 100/25MCG 14 PUFFS/INHALER INH SCH (14:16)
[2021-04-06] MEDS ORDERED: METOPROLOL TARTRATE 1 MG/ML VIAL IV STA (19:21)
[2021-04-06] MEDS ORDERED: traMADol HCL 50 MG TABLET PO STA (19:21)
[2021-04-06] MEDS ORDERED: SODIUM CHLORIDE 0.9% 500 ML IV ONE (19:41)
[2021-04-06] MEDS: ATORVASTATIN 40 MG TAB PO SCH (19:49)
[2021-04-06] MEDS: METOPROLOL TARTRATE 100 MG TAB PO SCH (19:49)
[2021-04-06] MEDS ORDERED: METOPROLOL TARTRATE 100 MG TAB PO SCH (21:00)
[2021-04-06] MEDS: MAGNESIUM SULFATE / D5W 1 GM/100 ML BAG IV SCH (22:09)
[2021-04-07] MEDS: MAGNESIUM SULFATE / D5W 1 GM/100 ML BAG IV SCH (00:26)
[2021-04-07] MEDS: LEVOTHYROXINE SODIUM 112 MCG TABLET PO SCH (05:40)
[2021-04-07 07:29] LABS: Hematocrit (blood only) 36.6 % (37-47); Hemoglobin 11.8 g/dL (12.0-16.0); Mean Corpuscular Hemoglobin 28.5 pg (25-34); Mean Corpuscular Hgb Conc 32.2 g/dL (32-36); Mean Corpuscular Volume 88.4 fL (80-100); Mean Platelet Volume 10.7 fL (7.4-10.4); Platelet Count 263 K/uL (130-400); RDW Coefficient of Variation 15.4 % (11.5-14.5); RDW Standard Deviation 49.4 fL (36.4-46.3); Red Blood Count 4.14 M/uL (4.2-5.4); White Blood Count 12.52 K/uL (4.8-10.8)
[2021-04-07 07:55] LABS: BUN Creatinine Ratio 27.9 (10-20); Calcium 9.2 mg/dl (8.5-10.1); Creatinine Clr Calc Pharmacy 93.4 ml/min; Est GFR (African American) 107.9 ml/min; Est GFR (Non-African American) 93.1 ml/min; Potassium 4.3 mmol/L (3.5-5.1)
[2021-04-07] MEDS: INSULIN ASPART PER UNIT SC SCH ×2 (08:00→12:35)
[2021-04-07] MEDS: APIXABAN 5 MG TABLET PO SCH (08:38)
[2021-04-07] MEDS: MAGNESIUM OXIDE 400 MG TAB PO SCH (08:38)
[2021-04-07] MEDS: amLODIPine BESYLATE 5 MG TAB PO SCH (08:39)
[2021-04-07] MEDS: predniSONE 20 MG TAB PO SCH (08:39)
[2021-04-07] MEDS: PANTOprazole 40 MG TAB PO SCH (08:39)
[2021-04-07] MEDS: METOPROLOL TARTRATE 100 MG TAB PO SCH (08:39)
[2021-04-07] MEDS: FLUTICASONE/VILANTEROL 100/25MCG 14 PUFFS/INHALER INH SCH (08:39)
--- NOTE | 2021-04-07 10:47 | Discharge Summary ---
Date of Service April 07, 2021 Admission HPI Per Admitting Provider This is a 65-year-old female who has significant past medical history of HTN, HLD, T2DM, VANESA on CPAP, history of a subarachnoid hemorrhage in 2013 spontaneous, hypothyroidism, RLS, obesity who presents to ED at the referral of PCP due to being found in atrial fibrillation in clinic. Of significance patient was diagnosed with COVID-19 on 03/08 and symptoms started on 03/04. Her symptoms consisted of cough, shortness of breath, malaise and fatigue. She completed her 10-day quarantine and resume work on 03/22. Despite being in a quarantine she continued to have a significant cough and shortness of breath with exertion. Because of this she was seen in clinic today for further evaluation. EKG revealed patient to be in atrial fibrillation and she was referred to ED for further treatment. Patient states when looking back after being diagnosed with Covid she does recall some palpitations, but denies any palpitations of late. She further denies any fever, chills, sweats, lightheadedness, dizziness, headache, chest pain, hemoptysis, nausea, vomiting, abdominal pain, change in bowel or urinary habits. She continues to have a cough that is productive of light yellow sputum in the morning and clear sputum in the afternoon. She has been taking [id number] [employer] products for symptom relief. She denies any prior history of heart disease or arrhythmias. She does have a significant family history of CAD with father passing of an MS at 52 and sister passing an MS at 53. She also has a significant history for spontaneous subarachnoid hemorrhage in 2013. This was felt to be small and left parietal region. She had follow-up imaging in June 2012 which showed resolution of hemorrhage. She did have a follow-up with neurology and it was felt to be benign. Currently she takes a baby aspirin daily for preventative measures. In ED patient's heart rate was in the 140s and 150s. She did receive 30 mg of IV diltiazem with mild relief. Her blood pressure remained stable. Lab work significant for H&H 11.6 and 36.1, glucose 111, TSH 0.183. Chest x-ray was negative for acute abnormality. Initial troponin WNL. Patient does state her levothyroxine was recently increased 1 week ago from 100-125. Principal Diagnosis Atrial fibrillation RVR Multiple Lung nodules Mediastinal lymphadenopathy T2DM HTN HLD VANESA Hypothyroidism Discharge Exam See Below Discharge Data Allergies Allergy/AdvReac Type Severity Reaction Status Date / Time hydrocodone Allergy Intermediate RASH Verified 04/03/21 16:59 Sulfa (Sulfonamide Allergy Mild GI SYMPTOMS Verified 04/03/21 16:59 Antibiotics) Consultations 04/03/21 16:35 ED Decision to Admit Stat 04/04/21 07:00 Consult Cardiology Routine 04/04/21 09:10 Consult Pulmonology Routine Procedures Performed Operation Date: 04/05/21 13:00 Actual Procedures p Endobronchial ultrasound with transbronchial biopsy, bronchoscopy, bronchial brushings, transbronchial needle aspiration.(Not Applicable) - Zane Medel MD Ordered Studies 04/03/21 17:38 CT angio chest PE protocol Stat 04/04/21 09:07 CT abd pelvis IV con only Routine Current Diagnoses Unspecified atrial fibrillation (04/03/21) Cough, 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) Other nonspecific abnormal finding of lung field (04/03/21) Abnormal findings on diagnostic imaging of other specified body structures (04/03/21) Post COVID-19 condition, 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) Encounter for other preprocedural examination (04/03/21) Allergies hydrocodone Allergy (Intermediate, Verified 04/03/21 16:59) RASH Sulfa (Sulfonamide Antibiotics) Allergy (Mild, Verified 04/03/21 16:59) GI SYMPTOMS Height/Weight/Isolation Height 5 ft 2.5 in Weight 97.8 kg Chemistry 04/06/21 04/07/21 03:49 07:09 Sodium 134 L 136 Potassium 4.4 4.3 Chloride 104 105 Carbon Dioxide 23 26 Anion Gap 7 5 BUN 17 19 Creatinine 0.74 0.68 Glucose 187 H 129 H Microbiology 04/05/21 13:38 Bronch Wash, Left Lingula Acid Fast Bacilli Smear - Final 04/05/21 13:38 Bronch Wash, Left Lingula Acid Fast Bacilli Culture - Pending 04/05/21 13:38 Bronch Wash, Left Lingula Gram Stain - Final 04/05/21 13:38 Bronch Wash, Left Lingula Bronchial Culture - Preliminary Scant normal kiah present; Final report to follow. 04/05/21 13:38 Bronch Wash, Left Lingula Fungal Smear - Final 04/05/21 13:38 Bronch Wash, Left Lingula Fungal Culture - Pending Hospital Course (1) Atrial fibrillation with rapid ventricular response: This is a 65-year-old female who has significant past medical history of HTN, HLD, T2DM, VANESA on CPAP, history of a subarachnoid hemorrhage in 2012 spontaneous, hypothyroidism, RLS, obesity who presents to ED at the referral of PCP due to being found in atrial fibrillation in clinic. Atrial fibrillation RVR Recent history of COVID-19, diagnosed 03/08/2021 Echocardiogram EF 55% Diltiazem drip for rate control, DC IV Heparin, Eliquis [id number] 3 (F, HTN, DM) CTA chest negative for PE but shows multiple non calcified lung nodules, Bronch and Biopsies done, f/u in office for results Cardiology on case Multiple Lung nodules Mediastinal lymphadenopathy Concerning for underlying malignancy Will obtain CT abdomen/pelvis with contrast to evaluate further Patient reports being up to date with her mammogram and colonoscopy Pulmonology on case T2DM last a1c 6.6 hold metformin a1c in a.m. monitor FBS place on novolog SS HTN Continue Norvasc HLD Continue statin VANESA CPAP at HS Hypothyroidism Levothyroxine recently increased from 100 mcg 125 mcg on 02/28/2021 secondary to TSH 5.81, normal free T4 TSH here 0.18 Reduce levothyroxine to 112 mcg Repeat in 4 weeks Dispo: PCU FULL CODE PCP: George Labs checked DVT prophylaxis- Apixiban DC Home f/u c Pulm and Cards ROS-No Headache, No Visual Changes, No Nausea, No Vomiting, No Fever, No Chills, No Neck Pain or Stiffness, No Chest Pain, No Palpitations, No SOB, No BAH, No Cough, No Sputum, No Wheezing, No Abdominal Pain, No Diarrhea, No Hematemesis, No Hemoptysis, No Unexpected Weight Loss, No Flank pain, No Melena, No Hematochezia, No Frequency, No Urgency, No Burning, No Hematuria, No Rashes, No Diaphoresis. Appetite is Normal Physical Exam Gen-AAO x 3, NAD, Afebrile, Obese Head-NCAT, EOMI, PERRLA, Anicteric Sclera, No Posterior Pharyngeal Erythema Neck-Supple, No JVD, No Thyromegaly, No Masses, No LAD, No Bruits Lungs-Clear to Auscultation Bilaterally, No Rales, No Rhonchi, No Wheezing, No Crepitus Chest-Irreg/Irreg No S4, +S1, +S2, No S3, No Murmurs, No Rubs, No Gallops, +Ect opy Abdomen-Soft, Bowel Sounds Present, Non Tender, Non Distended, No Hepatomegaly, No Splenomegaly, No Palpable Masses, No Rebound, No Rigidity, No Guarding Musculoskeletal-Full Range of Motion Bilaterally, No CVAT Extremities-No Cyanosis, No Clubbing, No Edema Nuero-Cranial Nerves II-XII grossly intact, Motor WNL, DTRs WNL, Strength WNL, Non Focal Psych-Normal Mood Total Time Total Time Spent Total Time Spent (In Minutes): 45 mins Total Time Includes: Examination of the Patient, Discharge Planning, Medication Reconciliation and Communication With Other Providers Discharge Plan Discharge Items Patient Disposition: Home - Self-Care Reason For Visit: AFIB Discharge Diagnosis: Atrial fibrillation RVR Multiple Lung nodules Mediastinal lymphadenopathy T2DM HTN HLD VANESA Hypothyroidism Condition on Discharge: Good Activity: Resume your previous activity Lifting: Gradually increase as tolerated Bathing: No limitations Sexual Activity: When tolerated Driving/Machine Use: No limitations Weightbearing: Full weightbearing Non-emergency contact: Primary Care Provider and Hvac Designer Call non-emergency contact if: you have any medication questions Follow-up/Referrals: Zane Medel MD [Physician] - (Call for biopsy result and follow up visit) Osmin Joseph DO [Hvac Designer] - (Call for appt) Paul Vazquez MD [Primary Care Provider] - Diet: Carb Consistent or DM2 and Heart Healthy Addtl Attending Provider Instructions: None Pending Studies at Discharge: No Stand-Alone Forms: My [facility], Smoking Cessation Medications and DC Order Prescriptions: New Eliquis 5 mg Tablet 5 mg PO BID Qty: 90 RF: 0 metoprolol tartrate 100 mg Tablet 100 mg PO BID Qty: 60 RF: 0 prednisone 20 mg Tablet 40 mg PO DAILY Qty: 15 RF: 0 Breo Ellipta 100-25 mcg/dose Blister With Device 1 ea inhalation DAILY Qty: 60 RF: 0 Continued multivitamin Tablet 1 tab PO DAILY RF: 0 atorvastatin 40 mg tablet 40 mg PO HS RF: 0 amlodipine 5 mg tablet 5 mg PO DAILY RF: 0 levothyroxine 25 mcg tablet 25 mcg PO DAILYBB RF: 0 levothyroxine 100 mcg tablet 100 mcg PO DAILYBB RF: 0 ascorbic acid (vitamin C) [Vitamin C] 500 mg Tablet 0 mg PO DAILY RF: 0 omeprazole 20 mg capsule,delayed release(DR/EC) 20 mg PO DAILY RF: 0 zinc 50 mg Tablet 50 mg PO DAILY RF: 0 metformin 500 mg tablet extended release 24 hr 500 mg PO BIDM RF: 0 vitamin E 400 unit Capsule 0 unit PO DAILY RF: 0 cholecalciferol (vitamin D3) [Vitamin D3] 25 mcg (1,000 unit) Capsule 0 mcg PO DAILY RF: 0 turmeric 400 mg Capsule 400 mg PO DAILY RF: 0 Glucosamine Chondroitin 550-30-1 mg Capsule 1 cap PO BID RF: 0 Discontinued omega-3 fatty acids 1,000 mg Capsule 1,000 mg PO DAILY RF: 0 aspirin 81 mg Tablet,Delayed Release (Dr/Ec) 81 mg PO DAILY RF: 0 Discharge Orders: Discharge Order (Routine); Ordered 04/07/21 Ordered By: Kash Figueredo/Other Patient Handouts: High Blood Sugar (Hyperglycemia), Hypoglycemia (Low Blood Sugar), Diabetes: Meal Planning, Type 2 Diabetes Admission Data Admit Date/Time: 04/03/21 16:46 Attending Provider: Kash Kemp Admit Provider: Tayla Gan Primary Care Provider: Paul Vazquez Other Providers: Tayla Gan ; Zane Medel ; Elmo Dyer ; Darron SalasBettye
--- NOTE | 2021-04-07 12:43 | Cardiology Progress Note ---
Date of Service April 07, 2021 Assessment & Plan (1) Atrial fibrillation with rapid ventricular response: Plan: Atrial fibrillation with rapid ventricular response: [id number] score of at least 3 for risk factors of female, h/o HTN, DM, and likely age as 65 years old is very close to 67 years old. - Continue metoprolol tartrate 100 milligrams twice daily. Eliquis for stroke prophylaxis, 5 Milligrams twice daily. Plan for outpatient cardiology follow-up, she remains in atrial fibrillation, consider outpatient direct current cardioversion after she has been on uninterrupted anticoagulation for an interval of 3 to 4 weeks. Pulmonary Nodules: -CT Abd and pelvis obtained by hospitalist service, With no evidence of metastatic disease. - preliminary results of bronchoscopy reassuring. Plan for repeat CT at an interval of 4 to 6 weeks as per advice of pulmonary. - Final cytology from a bronchoscopy still pending. Family History of Premature CAD in father, sister: -Continue atorvastatin Admission and Anticipated Discharge Date Admission Date: April 03, 2021 Subjective Patient seen examined in follow-up of atrial fibrillation and dyspnea on exertion. She remains in atrial fibrillation, ventricular rates down to the 90s at rest in the bedside chair, however she does get tachycardic with walking. Overall she feels like her breathing although not back to her pre illness baseline, is much improved compared to the last few weeks. Physical Exam Constitutional: + obese Cardiovascular: Rate/Rhythm: + tachycardic and + irregularly irregular Heart Sounds: no murmur Extremities: no edema Gastrointestinal (Abdomen): normal bowel sounds, soft, nontender, no hepatosplenomegaly Neurologic: PERRL, EOMI, accommodation nl, no face palsy, no dysarthria Results & Data ([facility]) Vital Signs (Past 12 Hours) Vital Signs Temp Pulse Pulse Pulse Resp BP BP 04/07/21 12:02 36.7 C 109 H 104 H 18 110/72 106/67 04/07/21 11:47 36.7 C 104 H 18 110/72 04/07/21 10:30 92 H 04/07/21 08:00 36.5 C 88 17 125/79 04/07/21 03:34 36.5 C 84 18 115/72 04/07/21 02:45 111 H Pulse Ox 04/07/21 12:02 96 04/07/21 11:47 96 04/07/21 10:30 04/07/21 08:00 95 04/07/21 03:34 98 04/07/21 02:45 Laboratory Results CBC 04/07/21 Range/Units 07:09 WBC 12.52 H (4.8-10.8) K/uL RBC 4.14 L (4.2-5.4) M/uL Hgb 11.8 L (12.0-16.0) g/dL Hct 36.6 L (37-47) % Plt Count 263 (130-400) K/uL Comprehensive Metabolic Panel 04/07/21 Range/Units 07:09 Sodium 136 (136-145) mmol/L Potassium 4.3 (3.5-5.1) mmol/L Chloride 105 (98-107) mmol/L Carbon Dioxide 26 (21-32) mmol/L BUN 19 (6-23) mg/dl Creatinine 0.68 (0.6-1.2) mg/dl Glucose 129 H (70-99(Fasting)) mg/dl Calcium 9.2 (8.5-10.1) mg/dl Intake and Output 04/06/21 04/07/21 04/07/21 22:59 06:59 14:59 Intake Total 700 / 2211.1 400 / 2211.1 Balance 700 / 2211.1 400 / 2211.1 Intake: IV 500 / 936.1 200 / 936.1 Magnesium Sulfate / D5w 1 gm In 200 / 200 100 ml @ 50 mls/hr IV Q2H CANDEL[facility] Rx#:[id number] Sodium Chloride 0.9% 500 ml @ 500 / 500 250 mls/hr IV .Q2H ONE Rx#: [id number] Oral 200 / 1275 200 / 1275 Other: # Unmeasured Voids 2 Weight 97.8 kg 97.8 kg Weight Measurement Method Built in [facility] Patient Weight 04/08/21 06:59 Weight 97.8 kg
--- NOTE | 2021-04-08 06:31 | Electrocardiogram Report ---
Test Reason : Blood Pressure : / mmHG Vent. Rate : 135 BPM Atrial Rate : 122 BPM P-R Int : 000 ms QRS Dur : 096 ms QT Int : 318 ms P-R-T Axes : 000 022 056 degrees QTc Int : 477 ms Atrial fibrillation with rapid ventricular response Incomplete right bundle branch block Abnormal ECG When compared with ECG of 05-APR-2021 06:09, Incomplete right bundle branch block is now Present Confirmed by Darryl Bermeo ([id number]) on 04/08/2021 6:30:58 AM Referred By: Paul Vazquez Confirmed By:Darryl Bermeo
[2021-04-12 23:46] LABS: Source BW LINGULA LEFT
== END 2021-04-07 13:31 | disposition home or self-care (01) | DRG 264 ==
LOC: ED 13:41 → SUATTDRO 16:46 → 2S 16:46